=== PATIENT | female | born 1955 | race Caucasian/White ===

== ENCOUNTER 2019-08-09 18:51 | Inpatient (IN) | payer OTHER ==
[2019-08-09] MEDS ORDERED: SODIUM CHLORIDE 2,041 ML IV ONE (19:46)
[2019-08-09] MEDS ORDERED: ACETAMINOPHEN 1000 MG/100 ML VIAL (NON FORMULARY) IVPB ONE (19:48)
[2019-08-09] MEDS ORDERED: ONDANSETRON 4 MG/2 ML VIAL IVPUSH ONE (19:48)
[2019-08-09] MEDS ORDERED: ACETAMINOPHEN INJECTION 100 ML IVPB ONE (20:02)
[2019-08-09] MEDS ORDERED: ONDANSETRON 4 MG/2 ML VIAL ONE (20:02)
[2019-08-09 20:06] LABS: VENOUS PC02 33.7 mmHg (38-52); VENOUS PH 7.47 (7.31-7.41)
[2019-08-09 20:07] LABS: VENOUS PO2 < 49 mmHg (28-48)
--- NOTE | 2019-08-09 20:08 | PDOC ---
History of Present Illness - General Chief Complaint: Weakness Stated Complaint: SOB & VOMITING Time Seen by Provider: 08/09/19 19:21 History Source: Patient Exam Limitations: No Limitations - History of Present Illness Initial Comments: 08/09/19 19:51 Source: Patient and Spouse PCP: [place] Oncologist: [facility] HPI: 64yo F with PMH hemolytic anemia, PUD/GERD requiring 2x transfusion (2014) , sepsis from [facility] (2014), [place] (2014, never followed up), Stroke without residual deficit, bacterial meningitis (2007), cholecystectomy (2011, later reported CTAP ), presenting with 3 days of worsening abdominal pain with associated nausea vomiting, and today diarrhea. Patient was in [place] about 5 days ago when she developed intermittent, stabbing, LLQ pain, moving to the RLQ and including her lower back - an acute worsening of chronic pains. Over the same period she developed nausea and vomiting with 6-7 episodes of NBNB emesis daily. Reports lack of appetite and inability to tolerate PO food or water for the past 4 days. Also fatigued over this period - "she is very tired all of the time" is baseline per spouse. Nonproductive cough at night time, no chest pain, shortness of breath, wheezing, diaphoresis, fevers or chills. Reports 1 episodes of diarrhea today, no blood, nothing dark - normally has regular bowel movements without constipation or diarrhea. Denies urinary symptoms. Denies recent travels, different foods, or sick contacts. All: PCN > swelling Meds: Prednisone 10mg, Pantoprazole 40mg, Folic Acid PMH: as above PSH: Cholecystectomy 2011 SHx: 1/2PPD lifetiem smoker, denies ETOH or illicits Past History - Travel Traveled outside of the country in the last 30 days: No Close contact w/someone who was outside of country & ill: No - Past Medical History Allergies/Adverse Reactions: Allergies Allergy/AdvReac Type Severity Reaction Status Date / Time Penicillins Allergy Verified 08/09/19 19:01 Home Medications: Ambulatory Orders Folic Acid 1 mg PO DAILY 08/09/19 Pantoprazole Sodium 40 mg PO DAILY 08/09/19 Prednisolone [Millipred] 10 mg PO DAILY 08/09/19 Anemia: Yes - Psycho Social/Smoking Cessation Hx Smoking History: Current every day smoker Have you smoked in the past 12 months: Yes Number of Cigarettes Smoked Daily: 7 Information on smoking cessation initiated: No 'Breaking Loose' booklet given: 02/06/14 Hx Alcohol Use: No Drug/Substance Use Hx: No Hx Substance Use Treatment: No Review of Systems - Review of Systems Able to Perform ROS?: Yes Is the patient limited Khmer proficient: Yes Constitutional: Yes: Malaise, Weakness. No: Chills, Diaphoresis, Fever, Night Sweats, Weight Stable HEENTM: No: Recent change in vision, Nose Congestion, Tinnitus, Throat Pain, Throat Swelling, Mouth Swelling Respiratory: Yes: Cough (not productive). No: Orthopnea, Shortness of Breath, Stridor, Wheezing, Productive cough Cardiac (ROS): No: Chest Pain, Edema, Irregular Heart Rate, Palpitations, Syncope, Chest Tightness ABD/GI: Yes: See HPI, Diarrhea, Nausea, Poor Appetite, Poor Fluid Intake, Vomiting. No: Abdominal Distended, Blood Streaked Bowels, Constipated, Difficulty Swallowing, Rectal Bleeding, Tarry Stools : No: Burning, Dysuria, Frequency, Incontinence, Pain Musculoskeletal: No: Back Pain, Gout, Joint Pain, Joint Swelling Integumentary: Yes: Change in Color (jaundiced ). No: Change in Hair/Nails, Pruritus, Rash Neurological: Yes: Weakness. No: Headache, Numbness, Tingling, Unsteady Gait Psychiatric: No: Stressors, Mood Swings, Change in Appetite Endocrine: No: Excessive Sweating, Change in Weight Hematologic/Lymphatic: Yes: See HPI, Other (hemolytic anemia) All Other Systems: Reviewed and Negative *Physical Exam - Vital Signs Last Vital Signs Temp Pulse Resp BP Pulse Ox 100.7 F H 114 H 24 H 93/64 100 08/09/19 19:50 08/09/19 19:00 08/09/19 19:00 08/09/19 19:00 08/09/19 19:00 - Physical Exam Comments: 08/09/19 20:36 Vitals reviewed, febile to 100.7 rectally, tachycardia to 100s/110s, normal SPO2 , soft BP possibly baseline WDWN woman, appears stated age, appears uncomfortable, laying in bed MMM, EOMI, NCAT, trachea midline, mild scleral icterus, soft palate and sublingual jaundice RRR, nl s1s2, no murmur appreciated Wheezes in upper bilateral lung hugo (Sat 100% on RA), normal WOB, no crackles , good air movement in mid/lower Mildly jaundiced skin, no rash Left sided CVA tenderness Soft, tender diffusely throughout entire abdomen, +guarding, mildly distractable , nondistended, no overlying rash / markings, not tympanic, nonperitoneal Alert and oriented, CN grossly intact, MAEE ED Treatment Course - LABORATORY CBC & Chemistry Diagram: 08/10/19 06:02 08/10/19 06:02 - RADIOLOGY Radiology Studies Ordered: Category Date Time Status CHEST X-RAY PORTABLE* [RAD] Stat Radiology 08/09/19 19:46 Ordered Medical Decision Making - Medical Decision Making 08/09/19 20:10 64yo F with PMH hemolytic anemia, sepsis from [facility] (2014), [place] (2014, never followed up), Stroke without residual deficit, bacterial menengitis (2007), cholecystectomy (2011, later reported CTAP), presenting with 3 days of worsening abdominal pain with associated nausea vomiting, and today diarrhea. History notable for N/V/D, severe diffuse abdominal pain, anorexia. Physical notable for diffuse tenderness to light palpation, guarding, fever with tachycardia meeting sepsis criteria. DDX: Sepsis, appendicitis, PUD vs perforated viscous, splenic infarct, pancreatitis, gastroenteritis with dehydration, pyelonephritis. -Sepsis order set with 2L fluids, lipase -1g IV Tylenol -4mg Zofran -CTAP with IV Contrast 08/09/19 20:53 -Pt with Cr 1.5 prior baseline Cr before renal failure in 2014 - possibly EMILY in setting of dehydration vs CKD, IVF running, still plan for CTAP with IV contrast 08/09/19 22:05 -Leukocytosis, anemia / abnormal cell morphologies c/w hemolytic anemia -Normal electrolytes, Coags mildly elevated -Urine studies pending -CTAP complete, pending read 08/09/19 23:32 -CTAP with severe narrowing of the origin of janet superior mesenteric artery suspicious for chronic superior mesenteric artery distribution mild mesenteric ischemia. Mild nonspecific wall thickening of the cecum most likely due to mild infectious or inflammatory colitis or mild chronic ischemic colitis. mild left nonspecific mesenteric edema may be due to mild infection or inflammation. -Lactate negative (1.5) -Call placed to surgery -UTI, +CVA tenderness, DX Pyelonephritis -Levaquin 750, Morphine 2 -Repeat lactate being drawn 08/09/19 00:06 -Call placed to surgery, Dr. Hinson -Patient without lactate, non-peritoneal, likely admission to med/surg floor 08/10/19 00:12 -Surgery deferred to vascular surgery -Patient with continued pain, intermittently sharp / churning pain -2mg additional morphine 08/10/19 00:37 -Patient requesting social work for assistance establishing healthcare for the uninsured/underinsured Admitted to Med/Surg under Dr. Riley, will call vascular surgery 08/10/19 00:40 -Call place to Vascular surgery 08/10/19 00:47 -Dr. Gallego on board and will see the patient Discharge - Discharge Information Problems reviewed: Yes Clinical Impression/Diagnosis: EMILY (acute kidney injury), Pyelonephritis of left kidney, Chronic mesenteric ischemia Abdominal pain Qualifiers: Abdominal location: generalized Qualified Code(s): R10.84 - Generalized abdominal pain Condition: Guarded - Admission Yes - Follow up/Referral - Patient Discharge Instructions - Post Discharge Activity
[2019-08-09 20:24] LABS: INR 1.25 (0.83-1.09); PROTHROMBIN TIME (PATIENT) 14.8 SEC (9.7-13.0)
[2019-08-09 20:26] LABS: ACTIVATED PTT 29.6 SECONDS (25.2-36.5)
[2019-08-09 20:34] LABS: ALBUMIN 3.2 g/dl (3.4-5.0); BILIRUBIN,TOTAL 2.3 mg/dL (0.2-1); BLOOD UREA NITROGEN 16.8 mg/dL (7-18); CALCIUM 8.9 mg/dL (8.5-10.1); CREATININE 1.5 mg/dL (0.55-1.3); POTASSIUM 4.7 mmol/L (3.5-5.1); TOT PROT 6.5 g/dl (6.4-8.2)
[2019-08-09 21:01] LABS: HEMATOCRIT 20.8 % (32.4-45.2); HEMOGLOBIN 7.5 GM/dL (10.7-15.3); MCH 37.9 pg (25.7-33.7); MEAN CELL VOLUME 105.3 fl (80-96); RBC 1.97 M/mm3 (3.60-5.2); WHITE BLOOD COUNT 14.7 K/mm3 (4.0-10.0)
--- NOTE | 2019-08-09 21:30 | PDOC ---
Documentation entered by Bhargavi Gil SCRIBE, acting as scribe for Shayy Regan MD. Shayy Regan MD: This documentation has been prepared by the Louise arriola Nirvannie, SCRIBE, under my direction and personally reviewed by me in its entirety. I confirm that the documentation accurately reflects all work, treatment, procedures, and medical decision making performed by me. Attending Attestation - Resident Resident Name: JonahShade - ED Attending Attestation I have performed the following: I have examined & evaluated the patient, The case was reviewed & discussed with the resident, I agree w/resident's findings & plan - HPI HPI: 08/09/19 20:58 Ms. Jenkins is a 64 yo F with PMH hemolytic anemia, sepsis from P[place] (2014), [place] (2014), CVA without residual deficit, bacterial menengitis (2007), cholecystectomy (2011, later reported CTAP), presenting with 3 days of worsening abdominal pain with associated nausea vomiting, and today diarrhea. Approximately 5 days ago, she developed intermittent, stabbing, LLQ pain, moving to the RLQ and exending to her lower back She has nausea and is vomiting 6-7 times daily Pt has no appetite and is unable to tolerate PO. (+) Nonproductive cough no chest pain, shortness of breath, wheezing, diaphoresis, fevers or chills. (+) diarrhea non bloody, not melanotic Denies recent travels, different foods, or sick contacts. All: PCN > swelling Meds: Prednisone 10mg, Pantoprazole 40mg, Folic Acid PMH: as above PSH: Cholecystectomy 2011 SHx: 1/2PPD lifetiem smoker, denies ETOH or illicits - Physicial Exam PE: 08/09/19 21:28 GENERAL: The patient is in no acute distress. ENT: Ears normal, nares patent, oropharynx clear without exudates. Moist mucous membranes. No tonsillar enlargement, no exudates NECK: Normal range of motion, supple, no nuchal rigidity (+) LAD LUNGS: Breath sounds equal, clear to auscultation bilaterally. No wheezes, and no crackles. HEART:Regular rate and rhythm, normal S1 and S2 without murmur, rub or gallop. ABDOMEN: Soft, epigastric mid abdominal tenderness EXTREMITIES: Normal range of motion, no edema. NEUROLOGICAL: Cranial nerves II through XII grossly intact. Normal speech. No focal neurological deficits. SKIN: Warm, Dry, normal turgor, no rashes or lesions noted. 08/09/19 22:17 - Medical Decision Making 08/09/19 21:28 Ms. Jenkins presents to the emergency department with a complaint of abdominal pain, fevers, chills Patient status post cholecystectomy in the past Differential diagnosis includes but is not limited to: Diverticulitis (complicated versus uncomplicate), appendicitis, SBO with secondary infection, UTI with obstructing stone, pyelonephritis, viral infection EKG: Twelve-lead EKG was performed and reviewed by me. There is normal sinus rhythm with a normal rate. The axis is normal. The intervals are normal. There are no ST or T wave abnormalities. Impression: Normal twelve-lead EKG 08/09/19 22:14 Laboratory Tests 08/09/19 08/09/19 08/09/19 20:00 20:00 20:00 WBC 14.7 H Hgb 7.5 L Hct 20.8 L D INR PTT (Actin FS) Sodium 138 Potassium 4.7 Chloride 106 Carbon Dioxide 26 BUN 16.8 Creatinine 1.5 H Total Bilirubin 2.3 H Troponin I < 0.02 Lipase 140 08/09/19 20:00 WBC Hgb Hct INR 1.25 H PTT (Actin FS) 29.6 Sodium Potassium Chloride Carbon Dioxide BUN Creatinine Total Bilirubin Troponin I Lipase 08/09/19 23:32 Laboratory Tests 08/09/19 22:25 Urine Blood 1+ H Urine Nitrite Positive H Ur Leukocyte Esterase 2+ H Urine WBC (Auto) 254.9 Urine RBC (Auto) 5.9 Urine Bacteria (Auto) 1525.3 CT: FINDINGS: Lung bases are clear. Mild hepatomegaly. Mild nonspecific splenomegaly. Hypodense nonspecific splenic lesions may be due to infection or lymphoma. Nonspecific 1.2 cm hypodense lesion in the spleen on axial image 22. Nonspecific 1.3 cm hypodense lesion in the spleen on axial image 45. Status post cholecystectomy the common bile duct is mildly dilated. Adrenal glands and kidneys appear unremarkable. Moderate to severe arteriosclerosis of the aorta and aortic branches. Mild narrowing of the celiac trunk from the crura of the diaphragm on sagittal image 57. Severe narrowing of the origin of the superior mesenteric artery suspicious for chronic superior mesenteric artery distribution mild mesenteric ischemia. Arteriosclerotic narrowing of the origin of the inferior mesenteric artery is not well seen. Moderate arteriosclerosis of the pelvic arterial vasculature. Stomach appears unremarkable. Small bowel and appendix appear unremarkable. No appendicitis. Mild nonspecific circumferential wall thickening of the cecum may be due to mild infectious or inflammatory colitis or mild chronic ischemic colitis. Mild left abdominal nonspecific mesenteric edema may be due to mild infection or inflammation. Diverticulosis of the colon without diverticulitis. Heterogeneous enlarged fundal uterine myometrium may be due to multiple uterine fibroids and other uterine masses including malignancy cannot be excluded. Bladder appears unremarkable. No free air. No abscess. Small umbilical hernia of omental fat without incarceration. Mild to moderate degenerative disc disease. IMPRESSION: Severe narrowing of the origin of the superior mesenteric artery suspicious for chronic superior mesenteric artery distribution mild mesenteric ischemia. If clinically indicated further evaluation may be needed. Arteriosclerotic narrowing of the inferior mesenteric artery is not well seen. Mild nonspecific wall thickening of the cecum most likely due to mild infectious or inflammatory colitis or mild chronic ischemic colitis. Mild left abdominal nonspecific mesenteric edema may be due to mild infection or inflammation. Heterogeneous enlarged fundal uterine myometrium may be due to multiple uterine fibroids and other uterine masses including malignancy cannot be excluded. If clinically indicated follow-up outpatient [facility] consultation may be needed. Hypodense nonspecific splenic lesions may be due to infection or lymphoma. If clinically indicated follow-up outpatient evaluation may be needed. This CT exam was performed using one or more of the following dose reduction techniques: automated exposure control, adjustment of the mA and/or kV according to patient size, use of iterative reconstruction technique. One or more of the following dose reduction techniques were used: automated exposure control, adjustment of the mA and/or kV according to patient size, use of iterative reconstructive technique. THIS DOCUMENT HAS BEEN ELECTRONICALLY SIGNED Adonis Sher MD 08/09/2019 23:08 JACOB M.D. Please call Imaging Candy Puller [phone] ([phone]) with questions. Adonis Sher MD Pt ordered for Levaquin IV for colitis AND UTI Call placed to general surgery who state they are no the right consult for mesenteric ischemia Call placed to Dr Gallego, vascular Clinical impression: UTI, initial presentation (?pyelo) Colitis, initial presentation Chronic mesenteric ischemia, initial presentation Uterine masses, initial presentation Splenic lesions, initial prsentation
[2019-08-09 21:36] LABS: ANISOCYTOSIS 1+; MACROCYTOSIS 2+
[2019-08-09 21:37] LABS: PLATELET ESTIMATE ADEQUATE
[2019-08-09 22:37] LABS: PH,URINE 6.5 (5.0-8.0); URINE APPEARANCE CLOUDY; URINE BILIRUBIN NEGATIVE (NEGATIVE); URINE COLOR YELLOW; URINE GLUCOSE (UA) NEGATIVE (NEGATIVE); URINE KETONE NEGATIVE (NEGATIVE); URINE LEUK ESTERASE 2+ (NEGATIVE); URINE NITRITE POSITIVE (NEGATIVE); URINE PROTEIN 1+ (NEGATIVE)
[2019-08-09 22:55] LABS: EPI CELLS 1.2 /HPF (0-5/HPF); HYALINE CASTS 0 /lpf (0-8); URINE BACTERIA 1525.3 /hpf (NEGATIVE); URINE RBC 5.9 /hpf (0-4); URINE WBC 254.9 /hpf (0-5)
[2019-08-09] MEDS ORDERED: morphine CARPU-JECT 4 MG/1 ML DISP.SYRIN IVPUSH ONE (23:32)
[2019-08-09] MEDS ORDERED: MORPHINE SULFATE 2 MG/ML VIAL ONE (23:34)
[2019-08-10] MEDS ORDERED: morphine CARPU-JECT 4 MG/1 ML DISP.SYRIN IVPUSH ONE (00:30)
[2019-08-10] MEDS ORDERED: MORPHINE SULFATE 2 MG/ML VIAL ONE (00:39)
[2019-08-10] MEDS ORDERED: ACETAMINOPHEN 325 MG TABLET (FP) PO PRN (01:44)
[2019-08-10] MEDS ORDERED: SODIUM CHLORIDE 1,000 ML IV SCH (01:45)
[2019-08-10 02:10] LABS: BILIRUBIN,DIRECT 0.6 mg/dL (0.0-0.2)
--- NOTE | 2019-08-10 02:23 | HP ---
CHIEF COMPLAINT:LLQ abdominal pain PCP: none HISTORY OF PRESENT ILLNESS: 64 y/o F with PMH of cold agglutinin hemolytic anemia, PUD/GERD, CT (2014), TIA , bacterial meningitis(2007), cholecystectomy (2011) presenting with 3 days of worsening abdominal pain rating 8/10 in severity with associated 6-7 episodes NBNB nausea/vomiting and non bloody diarrhea. 5 day ago patient noticed that her pain in getting worse; it became more frequent, stabbing like in the LLQ then migrating to the RLQ although she felt pain in her whole abdomen. Per Pt and , Pt has been anorexic for the past 4 days with poor oral intake including water due to her symptoms.However, pt denies that food aggrevated her abdominal pain. Lying on the side made the pain better but nothing else seems to make it better or worse. pt denies any fevers/chills,headaches, dizziness, chest pain, SOB, or change in her urine color or BMs. pt endorsed non productive cough. Pt admits to not following up with any of her outpatient physicians Recent Travel: none PAST MEDICAL HISTORY: as outlined above PAST SURGICAL HISTORY: Cholecystectomy Social History: Smoking: active smoker. 1/2 PPD for 15-20 yrs Alcohol:denies Drugs: denies Allergies Penicillins Allergy (Verified 08/09/19 19:01) HOME MEDICATIONS: Home Medications Medication Instructions Recorded Folic Acid 1 mg PO DAILY 08/09/19 Pantoprazole Sodium 40 mg PO DAILY 08/09/19 Prednisolone [Millipred] 10 mg PO DAILY 08/09/19 REVIEW OF SYSTEMS CONSTITUTIONAL: loss of appetite Absent: fever, chills, diaphoresis, generalized weakness, malaise, weight change HEENT: Absent: rhinorrhea, nasal congestion, throat pain, throat swelling, difficulty swallowing, mouth swelling, ear pain, eye pain, visual changes CARDIOVASCULAR: Absent: chest pain, syncope, palpitations, irregular heart rate, lightheadedness , peripheral edema RESPIRATORY: cough non productive Absent: shortness of breath, dyspnea with exertion, orthopnea, wheezing, stridor , hemoptysis GASTROINTESTINAL:abdominal pain,nausea, vomiting, diarrhea Absent: abdominal distension, constipation, melena, hematochezia GENITOURINARY: Absent: dysuria, frequency, urgency, hesitancy, hematuria, flank pain, genital pain MUSCULOSKELETAL: Absent: myalgia, arthralgia, joint swelling, back pain, neck pain SKIN: Absent: rash, itching, pallor HEMATOLOGIC/IMMUNOLOGIC: Absent: easy bleeding, easy bruising, lymphadenopathy, frequent infections ENDOCRINE: Absent: unexplained weight gain, unexplained weight loss, heat intolerance, cold intolerance NEUROLOGIC: Absent: headache, focal weakness or paresthesias, dizziness, unsteady gait, seizure, mental status changes, bladder or bowel incontinence PSYCHIATRIC: Absent: anxiety, depression, suicidal or homicidal ideation, hallucinations. PHYSICAL EXAMINATION Vital Signs - 24 hr 08/09/19 08/09/19 08/09/19 19:00 19:50 20:30 Temperature 99.9 F H 100.7 F H Pulse Rate 114 H Pulse Rate [ 89 Apical] Respiratory 24 H 20 Rate Blood Pressure 93/64 Blood Pressure 108/46 L [Right Arm] O2 Sat by Pulse 100 97 Oximetry (%) 08/10/19 01:05 Temperature 98.9 F Pulse Rate Pulse Rate [ 84 Apical] Respiratory 18 Rate Blood Pressure Blood Pressure 115/45 L [Right Arm] O2 Sat by Pulse 95 Oximetry (%) GENERAL: Awake, alert, and fully oriented, in mild distress. HEAD: Normal with no signs of trauma. EYES: Pupils equal, round and reactive to light, extraocular movements intact, sclera icteric. No lid lag. EARS, NOSE, THROAT: oropharynx clear without exudates. Moist mucous membranes. NECK: Normal range of motion, supple without lymphadenopathy, JVD, or masses. LUNGS: Breath sounds equal, clear to auscultation bilaterally. No wheezes, and no crackles. No accessory muscle use. HEART: Regular rate and rhythm, normal S1 and S2 without murmur, rub or gallop. ABDOMEN: Soft, tender to deep palpation diffusely but more pronounced in LQs, obese, normoactive bowel sounds, no guarding, no rebound, no masses. No hepatomegaly or splenomegaly. MUSCULOSKELETAL: Normal range of motion at all joints. No bony deformities or tenderness. L CVA tenderness. UPPER EXTREMITIES: 2+ pulses, warm, well-perfused. No cyanosis. No clubbing. No peripheral edema. LOWER EXTREMITIES: 2+ pulses, warm, well-perfused. No calf tenderness. No peripheral edema. SKIN: Warm, dry, normal turgor, no rashes or lesions noted, normal capillary refill. rectal exam: deferred Laboratory Results - last 24 hr 08/09/19 08/09/19 08/09/19 20:00 20:00 20:00 WBC 14.7 H RBC 1.97 L Hgb 7.5 L Hct 20.8 L D MCV 105.3 H MCH 37.9 H D MCHC 36.0 RDW 18.0 H Plt Count MPV No Result Required. Absolute Neuts (auto) 11.5 H Neutrophils % 78.2 Lymphocytes % 17.2 Monocytes % 4.1 Eosinophils % 0.2 Basophils % 0.3 Nucleated RBC % 0 Hypochromia 2+ Platelet Estimate Adequate Platelet Comment Mod plt clumping Anisocytosis 1+ Macrocytosis 2+ PT with INR INR PTT (Actin FS) VBG pH POC VBG pCO2 POC VBG pO2 VBG HCO3 VBG O2 Sat (Baljinder) VBG Base Excess Sodium 138 Potassium 4.7 Chloride 106 Carbon Dioxide 26 Anion Gap 7 L BUN 16.8 Creatinine 1.5 H Est GFR (CKD-EPI)AfAm 42.83 Est GFR (CKD-EPI)NonAf 36.95 Random Glucose 102 Lactic Acid Calcium 8.9 Total Bilirubin 2.3 H Direct Bilirubin 0.6 H AST 24 ALT 36 Alkaline Phosphatase 220 H Troponin I < 0.02 Total Protein 6.5 Albumin 3.2 L Lipase 140 Urine Color Urine Appearance Urine pH Ur Specific Mcallister Urine Protein Urine Glucose (UA) Urine Ketones Urine Blood Urine Nitrite Urine Bilirubin Urine Urobilinogen Ur Leukocyte Esterase Urine WBC (Auto) Urine RBC (Auto) Urine Casts (Auto) U Epithel Cells (Auto) Urine Bacteria (Auto) 08/09/19 08/09/19 08/09/19 20:00 20:00 20:00 WBC RBC Hgb Hct MCV MCH MCHC RDW Plt Count MPV Absolute Neuts (auto) Neutrophils % Lymphocytes % Monocytes % Eosinophils % Basophils % Nucleated RBC % Hypochromia Platelet Estimate Platelet Comment Anisocytosis Macrocytosis PT with INR 14.80 H INR 1.25 H PTT (Actin FS) 29.6 VBG pH 7.47 H POC VBG pCO2 33.7 L POC VBG pO2 < 49 H VBG HCO3 24.5 VBG O2 Sat (Baljinder) 75.3 VBG Base Excess 1.4 Sodium Potassium Chloride Carbon Dioxide Anion Gap BUN Creatinine Est GFR (CKD-EPI)AfAm Est GFR (CKD-EPI)NonAf Random Glucose Lactic Acid 1.5 Calcium Total Bilirubin Direct Bilirubin AST ALT Alkaline Phosphatase Troponin I Total Protein Albumin Lipase Urine Color Urine Appearance Urine pH Ur Specific Mcallister Urine Protein Urine Glucose (UA) Urine Ketones Urine Blood Urine Nitrite Urine Bilirubin Urine Urobilinogen Ur Leukocyte Esterase Urine WBC (Auto) Urine RBC (Auto) Urine Casts (Auto) U Epithel Cells (Auto) Urine Bacteria (Auto) 08/09/19 08/09/19 22:25 23:40 WBC RBC Hgb Hct MCV MCH MCHC RDW Plt Count MPV Absolute Neuts (auto) Neutrophils % Lymphocytes % Monocytes % Eosinophils % Basophils % Nucleated RBC % Hypochromia Platelet Estimate Platelet Comment Anisocytosis Macrocytosis PT with INR INR PTT (Actin FS) VBG pH POC VBG pCO2 POC VBG pO2 VBG HCO3 VBG O2 Sat (Baljinder) VBG Base Excess Sodium Potassium Chloride Carbon Dioxide Anion Gap BUN Creatinine Est GFR (CKD-EPI)AfAm Est GFR (CKD-EPI)NonAf Random Glucose Lactic Acid 0.6 Calcium Total Bilirubin Direct Bilirubin AST ALT Alkaline Phosphatase Troponin I Total Protein Albumin Lipase Urine Color Yellow Urine Appearance Cloudy Urine pH 6.5 D Ur Specific Mcallister 1.026 Urine Protein 1+ H Urine Glucose (UA) Negative Urine Ketones Negative Urine Blood 1+ H Urine Nitrite Positive H Urine Bilirubin Negative Urine Urobilinogen 1.0 Ur Leukocyte Esterase 2+ H Urine WBC (Auto) 254.9 Urine RBC (Auto) 5.9 Urine Casts (Auto) 0 U Epithel Cells (Auto) 1.2 Urine Bacteria (Auto) 1525.3 ASSESSMENT/PLAN: 64 y/o F with PMH of cold agglutinin hemolytic anemia, PUD/GERD, CT (2014), TIA , bacterial meningitis(2007), cholecystectomy (2011) presenting with 3 days of worsening abdominal pain rating 8/10 in severity with associated 6-7 episodes NBNB nausea/vomiting and non bloody diarrhea. Abdominal pain 2/2 ischemic due to hemolysis vs infectious colitis CTAP with severe narrowing of the origin of the superior mesenteric artery suspicious for chronic superior mesenteric artery distribution mild mesenteric ischemia. Mild nonspecific wall thickening of the cecum most likely due to mild infectious or inflammatory colitis or mild chronic ischemic colitis. mild left nonspecific mesenteric edema may be due to mild infection or inflammation. Vascular surgery Dr Gallego consulted NPO in case for need of surgical intervention aggresive Hydration with NS @100 right now started rocephyn and flagyl morphine for pain control. per Dr Riley, these pt can be in severe pain do not refrain from giving more pain meds if needed blood cultures sent Zofran UTI with Pos UA and CVA tenderness UA pos for nitrites, 1+blood and protein,wbc 254.9 f/u urine culture Hemolytic crisis 2/2 cold agglutinin hemolytic anemia exacerbation from infection? Hb 7.5/20.8 Dr Brown type and screen 1 PRBC transfused as pt had CAD . repeat cbc s/p transfusion indirect bili 1.7. LDH, Hapto, reticulocyte count, RDI ordered for active lysis cont folate supplementation dion test for antibody obtain o/p heme/onc records flu swab RUQ U/S for elevated ALP EMILY on chronic? pt doesnt know baseline monitor IVF BMP DVT SCDs no chemical AC Visit type - Emergency Visit Emergency Visit: Yes ED Registration Date: 08/10/19 Care time: The patient presented to the Emergency Department on the above date and was hospitalized for further evaluation of their emergent condition. - New Patient This patient is new to me today: Yes Date on this admission: 08/10/19 - Critical Care Critical Care patient: No ATTENDING PHYSICIAN STATEMENT I saw and evaluated the patient. I reviewed the resident's note and discussed the case with the resident. I agree with the resident's findings and plan as documented. SUBJECTIVE: OBJECTIVE: ASSESSMENT AND PLAN:
--- NOTE | 2019-08-10 02:38 | PN ---
Teaching Attending Note Name of Resident: Mary Sims ATTENDING PHYSICIAN STATEMENT I saw and evaluated the patient. I reviewed the resident's note and discussed the case with the resident. I agree with the resident's findings and plan as documented. SUBJECTIVE: 64 y/o F with PMH of cold agglutinin hemolytic anemia, PUD/GERD, [place] (2014), TIA , bacterial meningitis(2007), cholecystectomy (2011) presenting with 3 days of worsening abdominal pain, Which is present diffusely in her abdomen and it radiates to her flanks bilaterally, however denies overt back pain. She has associated nausea and vomiting with multiple episodes over the last 3 days. Reports one episode of loose stools nonbloody. Patient reports that her symptoms are characteristic of a typical hemolysis crisis. She denied any dysuria shortness of breath But did complain of a dry cough. OBJECTIVE: Last Vital Signs Temp Pulse Resp BP Pulse Ox 98.9 F 84 18 115/45 L 95 08/10/19 01:05 08/10/19 01:05 08/10/19 01:05 08/10/19 01:05 08/10/19 01:05 GENERAL: Well developed, well nourished. Awake and alert. Appears uncomfortable HEENT: Normocephalic, atraumatic. PERRLA, EOMI. +conjunctival pallor. Sclera are icteric. Moist mucous membranes. Oropharynx is clear. NECK: Supple. Full ROM. No JVD. Carotid pulses 2+ and symmetric, without bruits. No thyromegaly. No lymphadenopathy. CARDIOVASCULAR: Regular rate and rhythm. No murmurs, rubs, or gallops. Distal pulses are 2+ and symmetric. PULMONARY: No evidence of respiratory distress. Lungs clear to auscultation bilaterally. No wheezing, rales or rhonchi. ABDOMINAL: Soft. Tenderness in all quadrants, no rebound tenderness MUSCULOSKELETAL Normal range of motion at all joints. No bony deformities or tenderness. No CVA tenderness. EXTREMITIES: No cyanosis. No clubbing. No edema. No calf tenderness. SKIN: Warm and dry. Normal capillary refill. No rashes. No jaundice. PSYCHIATRIC: Cooperative. Good eye contact. Appropriate mood and affect. Abnormal Lab Results 08/09/19 08/09/19 08/09/19 20:00 20:00 20:00 WBC 14.7 H RBC 1.97 L Hgb 7.5 L Hct 20.8 L D MCV 105.3 H MCH 37.9 H D RDW 18.0 H Absolute Neuts (auto) 11.5 H PT with INR 14.80 H INR 1.25 H VBG pH POC VBG pCO2 POC VBG pO2 Anion Gap 7 L Creatinine 1.5 H Total Bilirubin 2.3 H Direct Bilirubin 0.6 H Alkaline Phosphatase 220 H Albumin 3.2 L Urine Protein Urine Blood Urine Nitrite Ur Leukocyte Esterase 08/09/19 08/09/19 20:00 22:25 WBC RBC Hgb Hct MCV MCH RDW Absolute Neuts (auto) PT with INR INR VBG pH 7.47 H POC VBG pCO2 33.7 L POC VBG pO2 < 49 H Anion Gap Creatinine Total Bilirubin Direct Bilirubin Alkaline Phosphatase Albumin Urine Protein 1+ H Urine Blood 1+ H Urine Nitrite Positive H Ur Leukocyte Esterase 2+ H Imaging reviewed ASSESSMENT AND PLAN: 64-year-old woman presenting with what appears to be a hemolytic anemia crisis. She appears to have a acute exacerbation which may be precipitated by the new onset of cold weather. Furthermore the her attack may have been precipitated by an infection which may be possible colitis versus cystitis versus cholangitis. leukocytosis+. She is noted to have elevated alk phos and hyperbilirubinemia which are likely from acute hemolytic crisis however cannot rule out acute hepatobiliary process such as cholangitis. Hemolytic crisis may have been precipitated further by vomiting and loose stool which would have led to dehydration. She is also noted to have mesenteric vessel stenosis on her abdominal CT however I do not have strong suspicion of mesenteric ischemia at this time as she does not have postprandial pain and her lactate was normal. Noted to have severe macrocytic anemia likely from the hemolysis. Platelet value was initially not available as they were clumped. We will try to resend in citrate tube. EMILY likely prerenal in nature. 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
[2019-08-10] MEDS: SODIUM CHLORIDE 1,000 ML IV SCH (03:38)
[2019-08-10 04:29] VITALS: BMI 27.0
[2019-08-10] MEDS: morphine SULFATE 4 MG/ML VIAL IVPUSH PRN ×4 (06:29→21:03)
[2019-08-10 07:34] LABS: ALBUMIN 2.7 g/dl (3.4-5.0); BILIRUBIN,TOTAL 1.5 mg/dL (0.2-1); BLOOD UREA NITROGEN 13.4 mg/dL (7-18); CALCIUM 8.2 mg/dL (8.5-10.1); CREATININE 1.3 mg/dL (0.55-1.3); MAGNESIUM 2.1 mg/dL (1.8-2.4); PHOSPHOROUS 3.2 mg/dL (2.5-4.9); POTASSIUM 4.4 mmol/L (3.5-5.1); TOT PROT 5.9 g/dl (6.4-8.2)
[2019-08-10 09:04] LABS: BASO % 0.6 % (0-2.0); EOS % 0.5 % (0-4.5); LYMPH % 17.1 % (8-40); MCH 35.5 pg (25.7-33.7); MCHC 34.9 g/dl (32.0-36.0); MEAN CELL VOLUME 101.9 fl (80-96); MEAN PLT VOLUME 9.3 fl (7.5-11.1); MONO % 4.3 % (3.8-10.2); NEUT % 77.5 % (42.8-82.8); RDW 18.6 % (11.6-15.6); WHITE BLOOD COUNT 12.5 K/mm3 (4.0-10.0)
--- NOTE | 2019-08-10 09:55 | PN ---
Progress Note, Physician Chief Complaint: still c/o abd pain, still hungry, passing gas, no bm today , last bm was yersterday, and also is nauseous, but no vomiting , - Current Medication List Current Medications: Active Medications Acetaminophen (Tylenol -) 650 mg PO Q4H PRN PRN Reason: PAIN LEVEL 1-5 Folic Acid (Folic Acid -) 1 mg PO DAILY TRAM Ceftriaxone Sodium 1 gm/ (Dextrose) 100 mls @ 200 mls/hr IVPB DAILY TRAM; Protocol Metronidazole (Flagyl 500mg Premixed Ivpb -) 500 mg in 100 mls @ 100 mls/hr IVPB Q8H-IV TRAM Last Admin: 08/10/19 03:37 Dose: 100 mls/hr Sodium Chloride (Normal Saline -) 1,000 mls @ 150 mls/hr IV ASDIR TRAM Last Admin: 08/10/19 03:38 Dose: 150 mls/hr Morphine Sulfate (Morphine Sulfate) 4 mg IVPUSH Q4H PRN PRN Reason: PAIN LEVEL 6-10 Last Admin: 08/10/19 06:29 Dose: 4 mg - Objective Vital Signs: Vital Signs Temperature 99.4 F 08/10/19 06:00 Pulse Rate 87 08/10/19 06:00 Respiratory Rate 18 08/10/19 06:00 Blood Pressure 120/54 L 08/10/19 06:00 O2 Sat by Pulse Oximetry (%) 100 08/10/19 04:00 Constitutional: Yes: Well Nourished Eyes: Yes: WNL HENT: Yes: WNL, Atraumatic Neck: Yes: WNL, Supple Cardiovascular: Yes: WNL, Regular Rate and Rhythm Respiratory: Yes: WNL, Regular, CTA Bilaterally Gastrointestinal: Yes: Soft, Tenderness (to deep palpation all aross the upper abdomen , no rebound, bs+.) Extremities: Yes: WNL Neurological: Yes: WNL Labs: CBC, BMP 08/10/19 06:02 08/10/19 06:02 INR, PTT INR 1.25 (0.83-1.09) H 08/09/19 20:00 - ....Imaging Cat Scan: Report Reviewed Ultrasound: Pending Problem List - Problems (1) EMILY (acute kidney injury) Code(s): N17.9 - ACUTE KIDNEY FAILURE, UNSPECIFIED (2) Abdominal pain Code(s): R10.9 - UNSPECIFIED ABDOMINAL PAIN Qualifiers: Abdominal location: generalized Qualified Code(s): R10.84 - Generalized abdominal pain (3) Chronic mesenteric ischemia Code(s): K55.1 - CHRONIC VASCULAR DISORDERS OF INTESTINE Impression/Plan Impression/Plan: ASSESSMENT/PLAN: 64 y/o F with PMH of cold agglutinin hemolytic anemia, PUD/GERD, [place] (2014), TIA , bacterial meningitis(2007), cholecystectomy (2011) presenting with 3 days of worsening abdominal pain rating 8/10 in severity with associated 6-7 episodes nausea/vomiting and non bloody diarrhea. Abdominal pain 2/2 ischemic due to hemolysis vs infectious colitis CT ABD with severe narrowing of the origin of the superior mesenteric artery suspicious for chronic superior mesenteric artery distribution mild mesenteric ischemia. Mild nonspecific wall thickening of the cecum most likely due to mild infectious or inflammatory colitis or mild chronic ischemic colitis. mild left nonspecific mesenteric edema may be due to mild infection or inflammation. Vascular surgery Dr Gallego consulted, and pending, case discussed on the phone and wants pt to eat, will fu later, and mesenteric ischemia is less likely reason for the pt to have the current symptoms, discussed with Gi, less likely from ischemia, no h/o of intestinal angina , will start clear liquids, and will continue ivf and abx for now, and also started on iv PPI as per GI, morphine for pain control. possible Hemolytic crisis 2/2 cold agglutinin hemolytic anemia exacerbation from infection? Hb 7.5/20.8 discussed with heme, no need for transfusion for now, monitor if needed will transfuse, discussed with , refusing transfusion, anc wants to be informed in case of transfusions, indirect bili dec check daily cbc and retic counts, EMILY on chronic IVF monitor labs, DVT SCDs no chemical AC - New Patient Visit type - Emergency Visit Emergency Visit: No - New Patient This patient is new to me today: Yes Date on this admission: 08/10/19 - Critical Care Critical Care patient: No - Discharge Referral Referred to [facility] No
[2019-08-10 10:04] LABS: RBC 1.96 M/mm3 (3.60-5.2)
[2019-08-10 10:29] LABS: PLATELET ESTIMATE NORMAL
--- NOTE | 2019-08-10 10:32 | EKG ---
Test Reason : Blood Pressure : / mmHG Vent. Rate : 088 BPM Atrial Rate : 088 BPM P-R Int : 138 ms QRS Dur : 088 ms QT Int : 348 ms P-R-T Axes : 072 054 054 degrees QTc Int : 421 ms NORMAL SINUS RHYTHM NORMAL ECG WHEN COMPARED WITH ECG OF 06-FEB-2014 22:03, NO SIGNIFICANT CHANGE WAS FOUND Confirmed by MD BE, ANSELMO ([id number]) on 08/10/2019 10:32:05 AM Referred By: Confirmed By:ANSELMO LR MD
[2019-08-10 10:38] LABS: PLATELET COUNT 330 K/MM3 (134-434)
[2019-08-10 10:57] LABS: RETICULOCYTES 4.71 % (0.5-1.5)
[2019-08-10] MEDS: FOLIC ACID 1 MG TABLET (FP) PO SCH (11:46)
--- NOTE | 2019-08-10 13:02 | CONSULT ---
Consult Consult Specialty:: Hematology Referred by:: Medicine Reason for Consultation:: Hemolysis - History of Present Illness Chief Complaint: Admitted with 3 days of worsening abdominal pain. with associated nausea vomiting, and then diarrhea. Also several days malaise and weakness. Ongoing hemolysis detected on admission, with history of cold agglutinin hemolysis. History of Present Illness: Known cold agglitinin syndrome, diagnosed in 2015, when presented with pneumonia. Managed by Dr Jesus Villarreal at [facility] in [place]. Received Rituxan in the past (?2016), and has generally been well since. Knows to avoid cold. Patient does not know if primary, or underlying lymphoproliferative neoplasm - has had abone marrow biopsy as part of her workup. Seen within last month by her manager summer, who informed her that he saw evidence of hemolysis - had increased her dose of prednisone. 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 No: Constipation, Diverticulosis, Esophageal Varices, Pancreatitis ...: No - Past Surgical History Past Surgical History: Yes: Tonsillectomy - Alcohol/Substance Use Hx Alcohol Use: No History of Substance Use: reports: None - Smoking History Smoking history: Current every day smoker Have you smoked in the past 12 months: Yes Aproximately how many cigarettes per day: 7 - Social History Usual Living Arrangement: With Spouse ADL: Independent History of Recent Travel: No Home Medications - Allergies Allergies/Adverse Reactions: Allergies Allergy/AdvReac Type Severity Reaction Status Date / Time Penicillins Allergy Verified 08/09/19 19:01 - Home Medications Home Medications: Ambulatory Orders Folic Acid 1 mg PO DAILY 08/09/19 Pantoprazole Sodium 40 mg PO DAILY 08/09/19 Prednisolone [Millipred] 10 mg PO DAILY 08/09/19 Review of Systems - Review of Systems Constitutional: reports: Malaise, Weakness. denies: Fever, Loss of Appetite, Night Sweats, Unintentional Wgt. Loss Eyes: reports: No Symptoms HENT: reports: No Symptoms Neck: denies: Lumps, Swollen Glands Cardiovascular: denies: Chest Pain, Shortness of Breath Respiratory: denies: Cough, SOB Gastrointestinal: reports: Abdominal Pain, Diarrhea, Nausea Genitourinary: reports: No Symptoms Breasts: reports: No Symptoms Reported Musculoskeletal: reports: No Symptoms Integumentary: reports: No Symptoms Neurological: denies: Change in LOC, Confusion, Parasthesia, Tremors Endocrine: reports: No Symptoms Hematology/Lymphatic: denies: Easily Bruised, Swollen Glands Psychiatric: reports: No Symptoms Physical Exam Vital Signs: Vital Signs Temperature 99.4 F 08/10/19 06:00 Pulse Rate 87 08/10/19 06:00 Respiratory Rate 18 08/10/19 06:00 Blood Pressure 120/54 L 08/10/19 06:00 O2 Sat by Pulse Oximetry (%) 100 08/10/19 04:00 Constitutional: Yes: Well Nourished, No Distress Eyes: Yes: Conjunctiva Clear, Sclera Icterus HENT: Yes: Atraumatic, Normocephalic Neck: Yes: Trachea Midline. No: Lymphadenopathy Cardiovascular: Yes: Regular Rate and Rhythm, S1, S2. No: Gallop, Murmur Respiratory: Yes: Regular, CTA Bilaterally Gastrointestinal: Yes: Normal Bowel Sounds, Soft. No: Palpable Mass, Splenomegaly Musculoskeletal: Yes: WNL Extremities: Yes: WNL Edema: No Integumentary: No: Bruising, Venous Stasis Changes Neurological: Yes: Alert, Oriented. No: Ataxia, Facial Droop ...Motor Strength: WNL Psychiatric: Yes: Alert, Oriented Labs: CBC, BMP 08/10/19 06:02 08/10/19 06:02 Assessment/Plan Known cold agglutinin syndrome, initially diagnosed 2014, presenting with GI symptoms, anemia, and evidence of ongoing hemolysis. Baseline Hb not known. Seems likely that the GI process is the primary event, and this possibly precipitated a hemolytic crisis. GI evaluation, possible vascular evaluation - narrowing of source of mesenteric artery seen on CT scan. From hematological standpoint current management consists of keeping patient warm, avoiding infusion pf cold fluids (IV fluid should be warmed to near body temperature, or avoided) Daily CBCs and reticuloctyte counts. Can transfuse if anemia significantly symptomatic (not indicated presently). If hemolysis continues unaabted with ongoing worsening of anemia, then more aggressive measures can be considered (IVIG, plasmapheresis). Will obtain information from primary manager summer (Dr. Villarreal, in [facility]) tomorrow - re baseline Hb and retic count etc. Peripheral smear reviewed - red cell agglutination noted).
--- NOTE | 2019-08-10 13:26 | CON.GI ---
Consult Consult Specialty:: Gastroenterology ( covering the [facility] GI service) Referred by:: Dr Trevor Garcia Reason for Consultation:: Nausea and vomiting - History of Present Illness Chief Complaint: nausea and vomiting History of Present Illness: 64F is admitted for nausea and vomiting for the past 3 days that has kept her form eating. She had a single episode of diarrhea yesterday but nothing since. Her CTA reveals a narrowed SMA takeoff a dilated CBD and cecal wall thickening. She did suffer a CVA and WA in the past. 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 She feels that her hemolysis is flaring further as such flares for her are associated with nausea and vomiting. She denies hematemesis and her diarrhea was nonbloody. She tells me that she had a UGI bleed form a gastric ulcer at [place] in 2014. At that time she also suffered an WA and was then discovered to have the hemolytic anemia. She has no regular medical followup as she in uninsured. She has been disabled since suffering bacterial meningitis and a CVA with transient right hemiparesis in 2007. She has never had a colonoscopy. She denies a FH of colon cancer and IBD. 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: CVA (2007 right hemiparesis with resolution), Other (Bacterial meningitis in 2007) Gastrointestinal: Yes: GI Bleed (gastric ulcer bleed 2014), Peptic Ulcer Disease Hepatobiliary: Yes: Cholelithiasis (s/p lap choly 2011), Choledocholithiasis (s/ p ERCP with Dr Munson 2011 with stone extraction) Reproductive: Yes: Fibroids ...: No Heme/Onc: Yes: Anemia (hemolytic) - Past Surgical History Past Surgical History: Yes: Cholecystectomy (laparoscopic in 2011 - Dr Hoff) , Tonsillectomy - Alcohol/Substance Use Hx Alcohol Use: No History of Substance Use: reports: None - Smoking History Smoking history: Current every day smoker Have you smoked in the past 12 months: Yes Aproximately how many cigarettes per day: 7 - Social History Usual Living Arrangement: With Spouse ADL: Independent 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 Loss, Weakness Eyes: reports: No Symptoms HENT: reports: No Symptoms Neck: reports: No Symptoms Cardiovascular: reports: No Symptoms Respiratory: reports: Exercise Intolerance Gastrointestinal: reports: Abdominal Pain, Nausea Musculoskeletal: reports: Muscle Pain Physical Exam-GI Vital Signs: Vital Signs Temperature 99.4 F 08/10/19 06:00 Pulse Rate 87 08/10/19 06:00 Respiratory Rate 18 08/10/19 06:00 Blood Pressure 120/54 L 08/10/19 06:00 O2 Sat by Pulse Oximetry (%) 100 08/10/19 04:00 CBC,CMP WBC 12.5 K/mm3 (4.0-10.0) H 08/10/19 06:02 RBC 1.96 M/mm3 (3.60-5.2) L 08/10/19 06:02 Hgb 7.0 GM/dL (10.7-15.3) L 08/10/19 06:02 Hct 20.0 % (32.4-45.2) L 08/10/19 06:02 MCV 101.9 fl (80-96) H 08/10/19 06:02 MCH 35.5 pg (25.7-33.7) H 08/10/19 06:02 MCHC 34.9 g/dl (32.0-36.0) 08/10/19 06:02 RDW 18.6 % (11.6-15.6) H 08/10/19 06:02 Plt Count 330 K/MM3 (134-434) D 08/10/19 06:02 MPV 9.3 fl (7.5-11.1) D 08/10/19 06:02 Absolute Neuts (auto) 9.7 K/mm3 (1.5-8.0) H 08/10/19 06:02 Neutrophils % 77.5 % (42.8-82.8) 08/10/19 06:02 Neutrophils % (Manual) No Result Required. 08/09/19 20:00 Lymphocytes % 17.1 % (8-40) 08/10/19 06:02 Monocytes % 4.3 % (3.8-10.2) 08/10/19 06:02 Eosinophils % 0.5 % (0-4.5) 08/10/19 06:02 Basophils % 0.6 % (0-2.0) 08/10/19 06:02 Nucleated RBC % 0 % (0-0) 08/10/19 06:02 Hypochromia 2+ 08/09/19 20:00 Platelet Estimate Normal 08/10/19 06:02 Platelet Comment No clotting detected 08/10/19 06:02 Anisocytosis 1+ 08/09/19 20:00 Macrocytosis 2+ 08/09/19 20:00 Retic Count 4.71 % (0.5-1.5) H 08/10/19 06:02 Sodium 143 mmol/L (136-145) 08/10/19 06:02 Potassium 4.4 mmol/L (3.5-5.1) 08/10/19 06:02 Chloride 110 mmol/L (98-107) H 08/10/19 06:02 Carbon Dioxide 24 mmol/L (21-32) 08/10/19 06:02 Anion Gap 9 MMOL/L (8-16) 08/10/19 06:02 BUN 13.4 mg/dL (7-18) 08/10/19 06:02 Creatinine 1.3 mg/dL (0.55-1.3) 08/10/19 06:02 Est GFR (CKD-EPI)AfAm 50.92 08/10/19 06:02 Est GFR (CKD-EPI)NonAf 43.93 08/10/19 06:02 Random Glucose 93 mg/dL (74-106) 08/10/19 06:02 Lactic Acid 0.6 mmol/L (0.4-2.0) 08/09/19 23:40 Calcium 8.2 mg/dL (8.5-10.1) L 08/10/19 06:02 Phosphorus 3.2 mg/dL (2.5-4.9) 08/10/19 06:02 Magnesium 2.1 mg/dL (1.8-2.4) 08/10/19 06:02 Total Bilirubin 1.5 mg/dL (0.2-1) H 08/10/19 06:02 Direct Bilirubin 0.6 mg/dL (0.0-0.2) H 08/09/19 20:00 AST 20 U/L (15-37) 08/10/19 06:02 ALT 33 U/L (13-61) 08/10/19 06:02 Alkaline Phosphatase 199 U/L (45-117) H 08/10/19 06:02 LD Total 221 U/L (84-246) 08/10/19 02:45 Troponin I < 0.02 ng/ml (0.00-0.05) 08/09/19 20:00 Total Protein 5.9 g/dl (6.4-8.2) L 08/10/19 06:02 Albumin 2.7 g/dl (3.4-5.0) L 08/10/19 06:02 Lipase 140 U/L (73-393) 08/09/19 20:00 Vitamin B12 531 pg/ml (193-986) 08/10/19 06:02 Serum Folate 53 ng/mL (3.1-17.5) H 08/10/19 06:02 TSH 2.45 uIU/ml (0.358-3.74) 08/10/19 06:02 Current Medications Generic Name Dose Route Start Last Admin Trade Name Freq PRN Reason Stop Dose Admin Acetaminophen 650 mg 08/10/19 01:44 Tylenol - PO Q4H PRN PAIN LEVEL 1-5 Folic Acid 1 mg 08/10/19 10:00 08/10/19 11:46 Folic Acid - PO Not Given DAILY TRAM Ceftriaxone Sodium 1 gm/ 100 mls @ 200 mls/hr 08/10/19 10:00 Dextrose IVPB DAILY TRAM Protocol Metronidazole 500 mg in 100 mls @ 100 mls/hr 08/10/19 02:00 08/10/19 11:42 Flagyl 500mg Premixed Ivpb - IVPB 100 mls/hr Q8H-IV TRAM Administration Sodium Chloride 1,000 mls @ 150 mls/hr 08/10/19 02:17 08/10/19 03:38 Normal Saline - IV 150 mls/hr ASDIR TRAM Administration Morphine Sulfate 4 mg 08/10/19 02:16 08/10/19 11:45 Morphine Sulfate IVPUSH 4 mg Q4H PRN Administration PAIN LEVEL 6-10 Constitutional: Yes: Anxious Eyes: Yes: Conjunctiva Clear HENT: Yes: Normocephalic Neck: Yes: Trachea Midline Cardiovascular: Yes: Regular Rate and Rhythm Respiratory: Yes: CTA Bilaterally Gastrointestinal Inspection: Yes: Distention, Scars (healed lap choly incisions) ...Auscultate: Yes: Normoactive Bowel Sounds ...Palpate: Yes: Soft, Other (RLQ tenderness) ...Rectal Exam: Yes: Guaiac Negative (soft brown guaiac negative stool) Edema: No Neurological: Yes: Alert, Oriented Labs: CBC, BMP 08/10/19 06:02 08/10/19 06:02 INR, PTT INR 1.25 (0.83-1.09) H 08/09/19 20:00 Imaging - Results Cat Scan: Report Reviewed ( Final Report CT ABDOMEN & PELVIS CT WITH CONTR Show Printer-Friendly Version Patient Name: Naomi Swain : Mar-1955 ID: [id number] Study Date: 09-Aug-2019 21:23 Velvet Costa Name: NAOMI SWAIN DEPARTMENT OF RADIOLOGY Phys: Shade Mckenzie RESIDENT : 1955 Age: 64 Sex: F [facility] Acct: [id number] Loc: [address] Exam Date: 08/09/19 Status: [place] [address] Unit Number: [id number] EXAM#: TYPE/EXAM: RESULT: [id number] CT/ABDOMEN PELVIS CT WITH CONTR History : abdominal pain CT Scan of the abdomen and pelvis without oral but with IV contrast; 96 cc Visipaque [id number] FINDINGS: Small hiatal hernia At least 2 1.0 cm low-attenuation lesions of the spleen identified. The liver,, adrenal glands and pancreas are unremarkable. Status post cholecystectomy There is no hydronephrosis, or renal calculi. No definitive solid renal masses There is no retroperitoneal lymphadenopathy. There is no abdominal aortic aneurysm. Significant calcification of the abdominal aorta with possible narrowing of the origin of the SMA Questionable mild inflammatory stranding in the left upper quadrant of the abdomen adjacent to the left kidney and small bowel. Could represent small mesenteric inflammation There are no inflammatory changes of the appendix There are no fluid collections in the abdomen or pelvis. There is no bowel obstruction. Large calcified regions of the uterus compatible with a fibroid uterus The urinary bladder is unremarkable. Evaluation of the large and small bowel limited because of lack of oral contrast ; if clinically warranted recommend additional imaging IMPRESSION: Small hiatal dense or low-attenuation lesions of the spleen are nonspecific Status post cholecystectomy Myomatous uterus Possible mild narrowing of the origin of the SMA. Consider further evaluation as clinically warranted Other comments as noted above PRELIMINARY REPORT PROVIDED BY RADIOLOGIST HITCH TECHNICIAN Reported By: Michael Cline MD 08/10/191213 Technologist: Issa Garcia Transcribed Date/Time: 08/10/191213 Process Helper: Michael Cline Printed Date/Time: By: Signed by: Michael Cline Signed on: 10-Aug-2019 12:16) Problem List - Problems (1) Nausea & vomiting Code(s): R11.2 - NAUSEA WITH VOMITING, UNSPECIFIED (2) Diarrhea Code(s): R19.7 - DIARRHEA, UNSPECIFIED (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 - STRICTURE OF ARTERY (4) Hemolytic anemia Code(s): D58.9 - HEREDITARY HEMOLYTIC ANEMIA, UNSPECIFIED (5) History of bacterial meningitis Code(s): Z86.61 - PERSONAL HISTORY OF INFECTIONS OF THE CENTRAL NERVOUS SYSTEM (6) History of CVA in adulthood Code(s): Z86.73 - PRSNL HX OF TIA (TIA), AND CEREB INFRC W/O RESID DEFICITS (7) History of myocardial infarction in adulthood Code(s): I25.2 - OLD MYOCARDIAL INFARCTION (8) Abdominal pain Code(s): R10.9 - UNSPECIFIED ABDOMINAL PAIN Qualifiers: Abdominal location: generalized Qualified Code(s): R10.84 - Generalized abdominal pain Assessment/Plan Assessment: - No evidence of active GI bleeding but given her N/V, anemia and h/o a major ulcer bleeding a PPI drip will be initiated. I suspect however that she has a viral gastroenteritis causing N/V with diarrhea. - Her RLQ pain corresponds to the cecum and her earlier nighthawk reading suggested cecal wall thickening. She could have an infectious enterocolitis or ischemic colitis but will ultimately need a colonoscopy to exclude a cecal malignancy and Crohns disease. I have explained this to her. At present she could not tolerate a bowel prep. She denies a history of intestinal angina and was eating well and moving her bowels regularly up until a few days ago - Dilated CBD can be the residual if ERCP with stone extraction and her cholecystectomy but given her elevated alkaline phosphatase further investigation with MRCP may need to be considered. Will check GGTP. Her indirect hyperbilirubinemia likely reflects her hemolytic anemia. Plan: -- PPI therapy -- Clear liquids -- Follow CBCs and LFTs -- Will ultimately need colonoscopy and perhaps a MRCP The [facility] GI service will assume care tomorrow
[2019-08-10] MEDS: PANTOPRAZOLE SODIUM 80 MG in SODIUM CHLORIDE 100 ML IVPB SCH (16:26)
[2019-08-10] MEDS ORDERED: cefTRIAXone SODIUM 1 GM VIAL ONE (19:41)
[2019-08-10] MEDS ORDERED: DEXTROSE 5%-WATER - 50 ML IVPB ONE (19:42)
[2019-08-10] MEDS: CEFTRIAXONE 1 GM in DEXTROSE 5%-WATER - 50 ML IVPB SCH (19:49)
[2019-08-10] MEDS: predniSONE 10 MG TABLET (UD) PO SCH (19:50)
[2019-08-11] MEDS ORDERED: PT OWN MED DRAWER 7, Y5N ONE (01:00)
[2019-08-11] MEDS: PANTOPRAZOLE SODIUM 80 MG in SODIUM CHLORIDE 100 ML IVPB SCH ×4 (01:04→21:30)
[2019-08-11] MEDS: SODIUM CHLORIDE 1,000 ML IV SCH ×2 (03:34→13:49)
[2019-08-11 08:14] LABS: ALBUMIN 2.6 g/dl (3.4-5.0); ALK PHOS 190 U/L (45-117); AMYLASE 44 U/L (25-115); ANION GAP 6 MMOL/L (8-16); BILIRUBIN,DIRECT 0.3 mg/dL (0.0-0.2); BILIRUBIN,TOTAL 0.7 mg/dL (0.2-1); BLOOD UREA NITROGEN 10.2 mg/dL (7-18); CALCIUM 8.3 mg/dL (8.5-10.1); CHLORIDE 114 mmol/L (98-107); CO2 24 mmol/L (21-32); GAMMA GLUTAMYL TRANSPEPTIDASE 250 U/L (5-85); GLUCOSE,RANDOM 102 mg/dL (74-106); LIPASE 118 U/L (73-393); POTASSIUM 5.1 mmol/L (3.5-5.1); SGOT/AST 18 U/L (15-37); SGPT/ALT 31 U/L (13-61); SODIUM 143 mmol/L (136-145); TOT PROT 5.6 g/dl (6.4-8.2)
[2019-08-11 08:26] LABS: IRON SERUM 57 ug/dL (50-175); TOTAL IRON BINDING CAPACITY 181 ug/dL (250-450)
--- NOTE | 2019-08-11 09:05 | PN ---
Progress Note (short form) - Note Progress Note: Vascular surgery CT scan reviewed. Very unlikely that pt's pain is coming from mild narrowing of SMA. Seems more of a colitis picture. For mesenteric ischemia to manifest, pt would need two out of the three mesenteric vessels to have severe stenosis. The celiac and LESLIE are patent. Medical management. Patrice Gallego DO
[2019-08-11 10:13] LABS: BASO % 0.3 % (0-2.0); EOS % 0.1 % (0-4.5); HEMATOCRIT 17.9 % (32.4-45.2); LYMPH % 23.7 % (8-40); MCH 33.6 pg (25.7-33.7); MCHC 34.9 g/dl (32.0-36.0); MONO % 2.6 % (3.8-10.2); NEUT % 73.3 % (42.8-82.8); PLATELET COUNT 329 K/MM3 (134-434); RBC 1.87 M/mm3 (3.60-5.2); RETICULOCYTES 4.41 % (0.5-1.5); WHITE BLOOD COUNT 8.1 K/mm3 (4.0-10.0)
[2019-08-11 10:17] LABS: HEMOGLOBIN 6.3 GM/dL (10.7-15.3)
[2019-08-11] MEDS ORDERED: DEXTROSE 5%-WATER - 50 ML IVPB ONE (10:23)
[2019-08-11] MEDS ORDERED: cefTRIAXone SODIUM 1 GM VIAL ONE (10:23)
[2019-08-11] MEDS: CEFTRIAXONE 1 GM in DEXTROSE 5%-WATER - 50 ML IVPB SCH (10:30)
[2019-08-11] MEDS: FOLIC ACID 1 MG TABLET (FP) PO SCH (10:32)
[2019-08-11] MEDS: predniSONE 10 MG TABLET (UD) PO SCH (10:32)
[2019-08-11] MEDS: morphine SULFATE 4 MG/ML VIAL IVPUSH PRN ×2 (10:52→21:33)
--- NOTE | 2019-08-11 16:38 | PN ---
Progress Note (short form) - Note Progress Note: Patient seen and examined Labs reviewed Abdomen pain free. Has been eating today. Per vascular SMA narrowing not significant enough to cause sx Vital Signs Temp 98.0 F 08/11/19 15:05 Pulse 72 08/11/19 15:05 Resp 18 08/11/19 15:05 BP 148/62 08/11/19 15:05 Pulse Ox 98 08/10/19 21:00 NAD Anicteric CBC, BMP 08/11/19 07:05 08/11/19 07:05 Impression: R colon wall thickening, ? isolated right colon ischemia vs infectious vs inflammatory Pending hematology addressing hemolysis, would tentatively plan for colonoscopy , possible EGD (h/o N/V) on Sunday Tentatively put on clears for tomorrow - if ok with heme, will order bowel prep
--- NOTE | 2019-08-11 16:41 | PN ---
Progress Note (short form) - Note Progress Note: Hematology and oncology follow up Subjective: Patient seen and examined at bedside. No events overnight. Patient continues to complain of mild nausea. Objective: Vital Signs Temperature 98.0 F 08/11/19 15:05 Pulse Rate 72 08/11/19 15:05 Respiratory Rate 18 08/11/19 15:05 Blood Pressure 148/62 08/11/19 15:05 O2 Sat by Pulse Oximetry (%) 98 08/10/19 21:00 Physical exam: Gen.: patient found lying in bed. Well appearing. Awake, alert. Lungs: clear to auscultation bilaterally down to the bases. Heart: regular rate and rhythm. S1, S2 heard. No murmurs gallops or rubs heard. Abdomen: soft, nontender, nondistended. Bowel sounds heard. Extremities: no peripheral edema noted. No bruising, swelling, erythema or warmth of extremities noted. neuro: patient A&O x3. Moving all four limbs spontaneously Active Medications Acetaminophen (Tylenol -) 650 mg PO Q4H PRN PRN Reason: PAIN LEVEL 1-5 Folic Acid (Folic Acid -) 1 mg PO DAILY [facility] Last Admin: 08/11/19 10:32 Dose: 1 mg Ceftriaxone Sodium 1 gm/ (Dextrose) 50 mls @ 100 mls/hr IVPB DAILY [facility]; Protocol Last Admin: 08/11/19 10:30 Dose: 100 mls/hr Metronidazole (Flagyl 500mg Premixed Ivpb -) 500 mg in 100 mls @ 100 mls/hr IVPB Q8H-IV TRAM Last Admin: 08/11/19 18:52 Dose: 100 mls/hr Sodium Chloride (Normal Saline -) 1,000 mls @ 150 mls/hr IV ASDIR TRAM Last Admin: 08/11/19 13:49 Dose: 150 mls/hr Pantoprazole Sodium 80 mg/ (Sodium Chloride) 100 mls @ 10 mls/hr IVPB Q10H TRAM Last Admin: 08/11/19 18:45 Dose: 10 mls/hr Morphine Sulfate (Morphine Sulfate) 4 mg IVPUSH Q4H PRN PRN Reason: PAIN LEVEL 6-10 Last Admin: 08/11/19 10:52 Dose: 4 mg Prednisone (Deltasone -) 70 mg PO DAILY [facility] Home Medications Medication Instructions Recorded Folic Acid 1 mg PO DAILY 08/09/19 Pantoprazole Sodium 40 mg PO DAILY 08/09/19 Prednisolone [Millipred] 10 mg PO DAILY 08/09/19 Allergies Allergy/AdvReac Type Severity Reaction Status Date / Time Penicillins Allergy Verified 08/09/19 19:01 CBC, BMP 08/11/19 07:05 08/11/19 07:05 Laboratory Tests 08/10/19 08/11/19 08/11/19 07:40 07:05 07:05 Retic Count 4.41 H Total Bilirubin 0.7 Direct Bilirubin 0.3 H GGT 250 H AST 18 ALT 31 Alkaline Phosphatase 190 H LD Total C-Reactive Protein 12.3 H Cold Agglutinins 1:256 H 08/11/19 13:44 Retic Count Total Bilirubin Direct Bilirubin GGT AST ALT Alkaline Phosphatase LD Total 261 H C-Reactive Protein Cold Agglutinins Assessment and plan: The patient is a 64 yo f w/ PMH known cold agglutinin syndrome (Dx 2014) who comes into the ED c/o nausea, abdominal pain and NBNB vomiting. 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 Villarreal ([phone]), patient's primary die designer apprentice; Patient was diagnosed in 2014, received IVIG and rituximab after which the patient went into remission. She had a flare in 2016 which was controlled with another round of rituximab. Since then she has been maintained on 5mg prednisone daily. -On 07/11, the patient was seen and she was noted to have a slight increase in her retics. Her prednisone was increased to 10mg daily and she was scheduled to follow up with him today. He was likely going to admit her. -will try pulse dose steroids first -if patient refractory to steroids, will begin rituxin infusion and d/c to follow up as outpatient once stable
--- NOTE | 2019-08-11 21:45 | PN ---
Progress Note (short form) - Note Progress Note: HPI: Pt without any complaints today. No symptoms reports. Denies light headedness, dizziness, shortness of breath, chest pain, palpitations, abdominal pain during rest, diarrhea/constipation, fever/chills. PE: GEN: NAD, patient found lying in bed. Awake, alert. Lungs: CTA bilaterally down to the bases. No wheezing Heart: RRR. S1, S2 heard. No murmurs Abdomen: soft, NT/ND. normoactive Bowel sounds heard. Extremities: no peripheral edema noted. No bruising, swelling, erythema or warmth of extremities noted. neuro: patient A&O x3. Moving all four limbs spontaneously CBC, BMP 08/11/19 07:05 08/11/19 07:05 Hepatic Panel Total Bilirubin 0.7 mg/dL (0.2-1) 08/11/19 07:05 Direct Bilirubin 0.3 mg/dL (0.0-0.2) H 08/11/19 07:05 AST 18 U/L (15-37) 08/11/19 07:05 ALT 31 U/L (13-61) 08/11/19 07:05 Alkaline Phosphatase 190 U/L (45-117) H 08/11/19 07:05 Albumin 2.6 g/dl (3.4-5.0) L 08/11/19 07:05 Microbiology 08/09/19 20:05 Blood - Peripheral Venous Blood Culture - Preliminary NO GROWTH OBTAINED AFTER 48 HOURS, INCUBATION TO CONTINUE FOR 3 DAYS. 08/09/19 20:00 Blood - Peripheral Venous Blood Culture - Preliminary NO GROWTH OBTAINED AFTER 48 HOURS, INCUBATION TO CONTINUE FOR 3 DAYS. 08/09/19 22:25 Urine - Urine Clean Catch Urine Culture - Preliminary Proteus Species Active Medications Acetaminophen (Tylenol -) 650 mg PO Q4H PRN PRN Reason: PAIN LEVEL 1-5 Folic Acid (Folic Acid -) 1 mg PO DAILY TRAM Last Admin: 08/11/19 10:32 Dose: 1 mg Ceftriaxone Sodium 1 gm/ (Dextrose) 50 mls @ 100 mls/hr IVPB DAILY TRAM; Protocol Last Admin: 08/11/19 10:30 Dose: 100 mls/hr Metronidazole (Flagyl 500mg Premixed Ivpb -) 500 mg in 100 mls @ 100 mls/hr IVPB Q8H-IV TRAM Last Admin: 10/21/19 18:52 Dose: 100 mls/hr Sodium Chloride (Normal Saline -) 1,000 mls @ 150 mls/hr IV ASDIR TRAM Last Admin: 08/11/19 13:49 Dose: 150 mls/hr Pantoprazole Sodium 80 mg/ (Sodium Chloride) 100 mls @ 10 mls/hr IVPB Q10H TRAM Last Admin: 08/11/19 21:30 Dose: 10 mls/hr Morphine Sulfate (Morphine Sulfate) 4 mg IVPUSH Q4H PRN PRN Reason: PAIN LEVEL 6-10 Last Admin: 08/11/19 21:33 Dose: 4 mg Prednisone (Deltasone -) 70 mg PO DAILY [facility] Assessment and Plan: Acute hemolytic anemia Abdominal pain 2/2 to above vs. SMA narrowing Urinary Tract Infection Peptic ulcer disease H/o TIA --Pt's AM Hgb 6.3; ordered 1UPRBC --Delay in transfusion as pt is declining until further allowed by her and/or cable cutter and swager --Hematology on board --Continue 1mg/kg corticosteroids for hemolysis --All fluids must be warmed to body temperature to prevent agglutination --TBili downtrending today; if increases again may have to consider further imaging --Rocephin day 2 today; prelim urinary culture growing proteus --Will follow-up final read and sensitivities FEN: Fluids: PO; avoid any cold fluids Electrolyte abnormalities: None Nutrition: Advance to clears today and tomorrow; NPO at Sunday for possible GI procedure PPX: DVT - SCDs only GI - Protonix gtt Dispo: continue to monitor Case discussed with Dr. Holloway and Hematology team Jeffery Hook, - IM PGY-3 <Jeffery Hook - Last Filed: 08/11/19 21:47> - Note Progress Note: Seen and examined; please see resident note for further historical information. I personally verified all bruce historical information and exam findings. Personally interpreted all imaging and diagnostics and reviewed appropriate consults. I reviewed all labs and vital signs as per resident note and EMR as documented. I agree with the above assessment and plan unless supplemented by myself in the following. Seen and examined, no new complaints. No active bleeding noted. I spoke with the for an extended period of time regarding the overall care. I received the patient's outpatient cable cutter and swager contact information we will phone them to discuss the case later on. Patient declined transfusion originally secondary to her concerns regarding of it not being discussed with her cable cutter and swager. We will attempt to alleviate her concerns. VS, labs, imaging reviewed NAD, AAO, resting comfortably in bed. RRR s1/2 no mgr Normal muscle tone, moves all 5 extremities with normal apparent strength Neck is supple, trachea midline, no juana LN Lungs CTAB with sym expansion NT ND +BS no juana organomegaly CN2-12 wnl; no FND NC AT EOMI PERRLA Normal mood, appropriate behavior, euthymic affect No skin breakdown or rashes noted Assessment and plan Patient presents to the medicine service with acute cold agglutinin hemolytic anemia and is being followed by hematology, we are discussing the case with her outpatient cable cutter and swager as well. Her urine culture is growing Proteus, she is on Rocephin day 2. We will continue all antibiotics as indicated, discussing with infectious disease regarding the final course. Problems include: Acute on chronic anemia Autoimmune hemolytic anemia Elevated bilirubin, considering MRCP UTI Suspected colitis Potential for ischemic colitis but felt less likely that by vascular surgery, appreciate consult. <Wayne Holloway - Last Filed: 08/12/19 11:14>
--- NOTE | 2019-08-11 23:33 | PN ---
Progress Note (short form) - Note Progress Note: Patient seen and examined c/o night sweats Denies wt. loss AFVSS Cor: RSR, No murmurs, No gallops Lungs: Clear to P&A Abd: Soft, Normal bowel sounds, No organomegaly Ext:No significant edema Labs/Meds reviewed A/P 64 y/o patient with h/o cold agglutinin hemolytic anemia, last treated with rituxan in 2017. Is on prednisone maintenance of 5mg daily Comes in with worsening anemia from baseline of 10-11 to 6.3 LDH --nl. cold agglutinin --1:256. Transfuse 1 unit PRBCs Will increase prednisone check Hep B profile in anticipation for rituxan check flow/cytogenetics/FISH/SIFE/UIFE/THOMAS/RF/ESR CT a/p --no retroperitoneal adenopathy. Narrowing of SMA? Check CT chest May need bone marrow bx based on cresults of w/u Will need close hematology f/u out patient
[2019-08-12] MEDS ORDERED: ONDANSETRON 4 MG/2 ML VIAL IVPUSH PRN (05:43)
[2019-08-12] MEDS: PANTOPRAZOLE SODIUM 80 MG in SODIUM CHLORIDE 100 ML IVPB SCH ×2 (06:57→16:53)
[2019-08-12] MEDS: SODIUM CHLORIDE 1,000 ML IV SCH (06:57)
[2019-08-12 08:25] LABS: HEMATOCRIT 15.3 % (32.4-45.2); MEAN CELL VOLUME 97.7 fl (80-96); RBC 1.56 M/mm3 (3.60-5.2); RDW 17.7 % (11.6-15.6); WHITE BLOOD COUNT 10.1 K/mm3 (4.0-10.0)
[2019-08-12 08:29] LABS: MCH 44.6 pg (25.7-33.7)
[2019-08-12 08:56] LABS: ALBUMIN 2.8 g/dl (3.4-5.0); BILIRUBIN,TOTAL 0.8 mg/dL (0.2-1); BLOOD UREA NITROGEN 8.7 mg/dL (7-18); CALCIUM 8.2 mg/dL (8.5-10.1); CREATININE 1.1 mg/dL (0.55-1.3); POTASSIUM 3.6 mmol/L (3.5-5.1); TOT PROT 5.4 g/dl (6.4-8.2)
[2019-08-12 09:20] LABS: MCHC 33.6 g/dl (32.0-36.0); PLATELET COUNT 335 K/MM3 (134-434); RETICULOCYTES 0.08 % (0.5-1.5)
[2019-08-12 09:21] LABS: MEAN PLT VOLUME 8.8 fl (7.5-11.1)
[2019-08-12 10:24] LABS: ERYTHROCYTE SEDIMENTATION RATE 94 mm/hr (0-30)
[2019-08-12] MEDS ORDERED: cefTRIAXone SODIUM 1 GM VIAL ONE (10:42)
[2019-08-12] MEDS ORDERED: DEXTROSE 5%-WATER - 50 ML IVPB ONE (10:42)
[2019-08-12] MEDS: CEFTRIAXONE 1 GM in DEXTROSE 5%-WATER - 50 ML IVPB SCH (10:44)
[2019-08-12] MEDS: predniSONE 20 MG TABLET (UD) PO SCH (10:45)
[2019-08-12] MEDS: FOLIC ACID 1 MG TABLET (FP) PO SCH (10:46)
--- NOTE | 2019-08-12 12:08 | CON.ID ---
Consult Consult Specialty:: infectious diseases Referred by:: Reason for Consultation:: vomitng,dairrhoea,weakness,leukocytosis - History of Present Illness Chief Complaint: weakness,dirrhoea History of Present Illness: 64 y/o F with PMH of cold agglutinin hemolytic anemia, PUD/GERD, NE (2014), TIA , bacterial meningitis(2007), cholecystectomy (2011) presenting with 3 days of worsening abdominal pain rating 8/10 in severity with associated 6-7 episodes NBNB nausea/vomiting and non bloody diarrhea. 5 day ago patient noticed that her pain in getting worse; it became more frequent, stabbing like in the LLQ then migrating to the RLQ although she felt pain in her whole abdomen. . pt denies any fevers/chills,headaches, dizziness, chest pain, SOB, or change in her urine color or BMs. pt endorsed non productive cough. Pt admits to not following up with any of her outpatient physicians denies any bleeding patient was worked up found to be anemic and was transfused - History Source History Provided By: Patient Limitations to Obtaining History: No Limitations - Past Medical History DIRECTOR OF RETENTION: Yes: CVA (2007 right hemiparesis with resolution), Other (Bacterial meningitis in 2007) Gastrointestinal: Yes: GI Bleed (gastric ulcer bleed 2014), Peptic Ulcer Disease Hepatobiliary: Yes: Cholelithiasis (s/p lap choly 2011), Choledocholithiasis (s/ p ERCP with Dr Munson 2011 with stone extraction) ...: No - Past Surgical History Past Surgical History: Yes: Cholecystectomy (laparoscopic in 2011 - Dr Hoff) , Tonsillectomy - Alcohol/Substance Use Hx Alcohol Use: No History of Substance Use: reports: None - Smoking History Smoking history: Current every day smoker Have you smoked in the past 12 months: Yes Aproximately how many cigarettes per day: 7 - Social History Usual Living Arrangement: With Spouse ADL: Independent 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 History of Recent Travel: No Home Medications - Allergies Allergies/Adverse Reactions: Allergies Allergy/AdvReac Type Severity Reaction Status Date / Time Penicillins Allergy Verified 08/09/19 19:01 - Home Medications Home Medications: Ambulatory Orders Folic Acid 1 mg PO DAILY 08/09/19 Pantoprazole Sodium 40 mg PO DAILY 08/09/19 Prednisolone [Millipred] 10 mg PO DAILY 08/09/19 Review of Systems - Review of Systems Constitutional: reports: Fever (low grade), Weakness Eyes: reports: No Symptoms HENT: reports: No Symptoms Neck: reports: No Symptoms Cardiovascular: reports: No Symptoms Respiratory: reports: No Symptoms Gastrointestinal: reports: Abdominal Pain, Diarrhea Musculoskeletal: reports: No Symptoms Integumentary: reports: No Symptoms Neurological: reports: No Symptoms Endocrine: reports: No Symptoms Hematology/Lymphatic: reports: No Symptoms Psychiatric: reports: No Symptoms Physical Exam Vital Signs: Vital Signs Temperature 98.3 F 08/12/19 10:00 Pulse Rate 81 08/12/19 10:00 Respiratory Rate 18 08/12/19 10:00 Blood Pressure 141/65 08/12/19 10:00 O2 Sat by Pulse Oximetry (%) 98 08/12/19 07:57 Constitutional: Yes: Well Nourished, No Distress, Calm Eyes: Yes: Other (pale conjunctiva) HENT: Yes: Atraumatic, Normocephalic Neck: Yes: Supple Cardiovascular: Yes: Regular Rate and Rhythm Respiratory: Yes: Regular, CTA Bilaterally Gastrointestinal: Yes: Normal Bowel Sounds, Soft Musculoskeletal: Yes: WNL Extremities: Yes: WNL Neurological: Yes: Alert, Oriented Psychiatric: Yes: Alert, Oriented Labs: CBC, BMP 08/12/19 07:35 08/12/19 07:35 Imaging - Results Chest X-ray: Report Reviewed, Image Reviewed Cat Scan: Report Reviewed, Image Reviewed Ultrasound: Report Reviewed, Image Reviewed Assessment/Plan Problem List - Problems (1) Nausea & vomiting Code(s): R11.2 - NAUSEA WITH VOMITING, UNSPECIFIED (2) Diarrhea Code(s): R19.7 - DIARRHEA, UNSPECIFIED (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 - STRICTURE OF ARTERY (4) Hemolytic anemia Code(s): D58.9 - HEREDITARY HEMOLYTIC ANEMIA, UNSPECIFIED (5) History of bacterial meningitis Code(s): Z86.61 - PERSONAL HISTORY OF INFECTIONS OF THE CENTRAL NERVOUS SYSTEM (6) History of CVA in adulthood Code(s): Z86.73 - PRSNL HX OF TIA (TIA), AND CEREB INFRC W/O RESID DEFICITS (7) History of myocardial infarction in adulthood Code(s): I25.2 - OLD MYOCARDIAL INFARCTION (8) Abdominal pain Code(s): R10.9 - UNSPECIFIED ABDOMINAL PAIN Qualifiers: Abdominal location: generalized Qualified Code(s): R10.84 - Generalized abdominal pain i suspect patients symptoms are viral,she is recovering from it,though i do not know if the findings of her sm re new or if that was the cause of her symptoms close watch other symptoms probably dues to hemolytic anemia close watch hydration transfusion as needed will continue to monitor rest as per the team
--- NOTE | 2019-08-12 18:44 | PN ---
Progress Note (short form) - Note Progress Note: Patient seen and examined with Dr. Brown, agree with his note plan and recommendations S: Abdominal discomfort resolving, ready to have dinner at the time of our interview O: Last Vital Signs Temp Pulse Resp BP Pulse Ox 98.4 F 73 18 123/67 98 08/12/19 15:12 08/12/19 15:12 08/12/19 15:12 08/12/19 15:12 08/12/19 07:57 AFVSS Cor: RSR, No murmurs, No gallops Lungs: Clear to P&A Abd: Soft, Normal bowel sounds, No organomegaly Ext:No significant edema 08/12/19 07:35 08/12/19 07:35 Current Medications Acetaminophen (Tylenol -) 650 mg PO Q4H PRN PRN Reason: PAIN LEVEL 1-5 Last Admin: 08/12/19 16:53 Dose: 650 mg Folic Acid (Folic Acid -) 1 mg PO DAILY TRAM Last Admin: 08/12/19 10:46 Dose: 1 mg Ceftriaxone Sodium 1 gm/ (Dextrose) 50 mls @ 100 mls/hr IVPB DAILY TRAM; Protocol Last Admin: 08/12/19 10:44 Dose: 100 mls/hr Metronidazole (Flagyl 500mg Premixed Ivpb -) 500 mg in 100 mls @ 100 mls/hr IVPB Q8H-IV TRAM Last Admin: 08/12/19 10:45 Dose: 100 mls/hr Pantoprazole Sodium 80 mg/ (Sodium Chloride) 100 mls @ 10 mls/hr IVPB Q10H TRAM Last Admin: 08/12/19 16:53 Dose: 10 mls/hr Ondansetron HCl (Zofran Injection) 4 mg IVPUSH Q6H PRN PRN Reason: NAUSEA AND/OR VOMITING Last Admin: 08/12/19 05:55 Dose: 4 mg Prednisone (Deltasone -) 70 mg PO DAILY TRAM Last Admin: 08/12/19 10:45 Dose: 70 mg A/P 64 y/o lady with h/o cold agglutinin hemolytic anemia, last treated with rituxan in 2017. Is on prednisone maintenance of 5mg daily Comes in with worsening anemia from baseline of 10-11 to 6.3 LDH --nl. cold agglutinin --1:256. Transfused 1 unit PRBCs Prednisone incread up to 70 mg po daily--> No overt effect yet but explained to patient that may take several days before an effect is seen check Hep B profile in anticipation for rituxan check flow/cytogenetics/FISH/SIFE/UIFE/THOMAS/RF/ESR CT a/p --no retroperitoneal adenopathy. Narrowing of SMA? Check CT chest May need bone marrow bx based on results of w/u Will need close hematology f/u out patient
--- NOTE | 2019-08-12 20:14 | PN.GI ---
GI Progress Note Subjective: No acute events Abdominal pain present but improved Dose of prednisone escalated - Objective Vital Signs: Vital Signs Temperature 99.2 F 08/12/19 18:00 Pulse Rate 81 08/12/19 18:00 Respiratory Rate 18 08/12/19 18:00 Blood Pressure 147/57 L 08/12/19 18:00 O2 Sat by Pulse Oximetry (%) 98 08/12/19 07:57 Constitutional: Calm Eyes: No: Sclera Icterus Cardiovascular: Yes: Regular Rate and Rhythm. No: Murmur Respiratory: Yes: CTA Bilaterally Gastrointestinal Inspection: No: Distention ...Auscultate: Yes: Normoactive Bowel Sounds ...Palpate: Yes: Soft, Tenderness (Mild TTP mid abdomen). No: Hepatomegaly, Splenomegaly ...Percussion: No: Tympanitic Edema: No (No LE edema) Neurological: Yes: Alert Labs: CBC, BMP 08/12/19 07:35 08/12/19 07:35 INR, PTT INR 1.25 (0.83-1.09) H 08/09/19 20:00 Hepatic Panel Total Bilirubin 0.8 mg/dL (0.2-1) 08/12/19 07:35 Direct Bilirubin 0.3 mg/dL (0.0-0.2) H 08/11/19 07:05 AST 18 U/L (15-37) 08/12/19 07:35 ALT 29 U/L (13-61) 08/12/19 07:35 Alkaline Phosphatase 179 U/L (45-117) H 08/12/19 07:35 Albumin 2.8 g/dl (3.4-5.0) L 08/12/19 07:35 Problem List - Problems (1) Diarrhea Assessment/Plan: Resolved Code(s): R19.7 - DIARRHEA, UNSPECIFIED (2) Nausea & vomiting Assessment/Plan: Resolved. Some mild mid abdominal tenderness Consider vascular consult to comment of SMA findings Ordered MRCP to evaluate CBD dilatation and elevated ALP Stopped PPI drip, no need. Changed to protonix 40mg daily Full liquids Ordered GGT Code(s): R11.2 - NAUSEA WITH VOMITING, UNSPECIFIED (3) Hemolytic anemia Assessment/Plan: Spoke with gut puller Dr. Luther cleveland. Would like to wait prior to EGD/ Colonoscopy to see if escalated dose of prednisone stabil;izes her hemolytic anemia. Agree as there is no urgency for procedures at this time. Monitor for overt bleeding Code(s): D58.9 - HEREDITARY HEMOLYTIC ANEMIA, UNSPECIFIED
--- NOTE | 2019-08-12 20:46 | PN ---
Progress Note (short form) - Note Progress Note: HPI: Pt complains of wanting regular food. Otherwise denies any active bleeding , pain, shortness of breath, chest pain, palpitations, dizziness/ lightheadedness. PE: GEN: NAD, Awake, alert. Lungs: CTA bilaterally down to the bases. No wheezing Heart: RRR. S1, S2 heard. No murmurs Abdomen: soft, NT/ND. normoactive Bowel sounds heard. Extremities: no peripheral edema noted. No bruising, swelling, erythema or warmth of extremities noted. neuro: patient A&O x3. Moving all four limbs spontaneously CBC, BMP 08/12/19 07:35 08/12/19 07:35 Hepatic Panel Total Bilirubin 0.8 mg/dL (0.2-1) 08/12/19 07:35 Direct Bilirubin 0.3 mg/dL (0.0-0.2) H 08/11/19 07:05 AST 18 U/L (15-37) 08/12/19 07:35 ALT 29 U/L (13-61) 08/12/19 07:35 Alkaline Phosphatase 179 U/L (45-117) H 08/12/19 07:35 Albumin 2.8 g/dl (3.4-5.0) L 08/12/19 07:35 Active Medications Acetaminophen (Tylenol -) 650 mg PO Q4H PRN PRN Reason: PAIN LEVEL 1-5 Last Admin: 08/12/19 16:53 Dose: 650 mg Folic Acid (Folic Acid -) 1 mg PO DAILY TRAM Last Admin: 08/12/19 10:46 Dose: 1 mg Ceftriaxone Sodium 1 gm/ (Dextrose) 50 mls @ 100 mls/hr IVPB DAILY TRAM; Protocol Last Admin: 08/12/19 10:44 Dose: 100 mls/hr Metronidazole (Flagyl 500mg Premixed Ivpb -) 500 mg in 100 mls @ 100 mls/hr IVPB Q8H-IV TRAM Last Admin: 08/12/19 18:58 Dose: 100 mls/hr Ondansetron HCl (Zofran Injection) 4 mg IVPUSH Q6H PRN PRN Reason: NAUSEA AND/OR VOMITING Last Admin: 08/12/19 05:55 Dose: 4 mg Pantoprazole Sodium (Protonix -) 40 mg PO DAILY TRAM Prednisone (Deltasone -) 70 mg PO DAILY TRAM Last Admin: 08/12/19 10:45 Dose: 70 mg Microbiology 08/09/19 20:05 Blood - Peripheral Venous Blood Culture - Preliminary NO GROWTH OBTAINED AFTER 72 HOURS, INCUBATION TO CONTINUE FOR 2 DAYS. 08/09/19 20:00 Blood - Peripheral Venous Blood Culture - Preliminary NO GROWTH OBTAINED AFTER 72 HOURS, INCUBATION TO CONTINUE FOR 2 DAYS. 08/09/19 22:25 Urine - Urine Clean Catch Urine Culture - Final Escherichia Fergusonii Assessment and Plan: Acute hemolytic anemia Abdominal pain 2/2 to above vs. SMA narrowing Urinary Tract Infection Enlarged CBD Peptic ulcer disease H/o TIA --Pt's AM Hgb 7.1 today --Transfusion threshold 7.0; MUST WARM PRBC if transfusion to occur --Reticulocytes remain high --Continue 1mg/kg corticosteroids for hemolysis (Prednisone 70mg qdaily) --All fluids must be warmed to body temperature to prevent agglutination --MRCP ordered for tomorrow; EGD delayed due to no need of urgency. --Rocephin day 3 today; f/u final urinary culture read and sensitivity --Appreciate all strategic planning consultant recommendations FEN: Fluids: PO; avoid any cold fluids Electrolyte abnormalities: None Nutrition: Advance to clears today and tomorrow; NPO at Sunday for possible GI procedure PPX: DVT - SCDs only GI - Decrease Protonix to daily Dispo: continue to monitor Case discussed with Dr. Jewel Hook, DO - IM PGY-3 <Jeffery Hook - Last Filed: 08/12/19 20:45> - Note Progress Note: Seen and examined; please see resident note for further historical information. I personally verified all bruce historical information and exam findings. Personally interpreted all imaging and diagnostics and reviewed appropriate consults. I reviewed all labs and vital signs as per resident note and EMR as documented. I agree with the above assessment and plan unless supplemented by myself.Patient has no new complaints today, no abdominal pain noted. Patient is n.p.o. for possible EGD. Will discuss with gastroenterology services. 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 Denies any chest pain shortness of breath diarrhea or nausea. VS, labs, imaging reviewed NAD, AAO, resting comfortably in bed. RRR s1/2 no mgr Normal muscle tone, moves all 5 extremities with normal apparent strength Neck is supple, trachea midline, no juana LN Lungs CTAB with sym expansion NT ND +BS no juana organomegaly CN2-12 wnl; no FND NC AT EOMI PERRLA Normal mood, appropriate behavior, euthymic affect No skin breakdown or rashes noted Assessment and plan Acute hemolytic anemia secondary to cold agglutinin subtype Abdominal pain, improved UTI improved Enlarged common bile duct, pending MRCP. Peptic ulcer disease, delineating the timing of the EGD with gastroenterology. She is n.p.o. for now but may be advanced if the procedure is not urgent Overall the patient continues on prednisone and we will monitor her blood counts. Transfusion history noted. Improvement in hemoglobin noted today alongside atypical reticulocyte count, we will repeat the value in the morning to see if there is improvement. Discussed case with resident team and subspecialist Overall 30 minutes were spent in the care of this patient. <Wayne Holloway - Last Filed: 08/13/19 10:41>
--- NOTE | 2019-08-12 23:27 | PN ---
Progress Note (short form) - Note Progress Note: Hematology and oncology follow up Subjective: Patient seen and examined at bedside. No events overnight. no new complaints Objective: Vital Signs Temperature 98.0 F 08/11/19 15:05 Pulse Rate 72 08/11/19 15:05 Respiratory Rate 18 08/11/19 15:05 Blood Pressure 148/62 08/11/19 15:05 O2 Sat by Pulse Oximetry (%) 98 08/10/19 21:00 Physical exam: Gen.: patient found lying in bed. Well appearing. Awake, alert. Lungs: clear to auscultation bilaterally down to the bases. Heart: regular rate and rhythm. S1, S2 heard. No murmurs gallops or rubs heard. Abdomen: soft, nontender, nondistended. Bowel sounds heard. Extremities: no peripheral edema noted. No bruising, swelling, erythema or warmth of extremities noted. neuro: patient A&O x3. Moving all four limbs spontaneously Active Medications Acetaminophen (Tylenol -) 650 mg PO Q4H PRN PRN Reason: PAIN LEVEL 1-5 Folic Acid (Folic Acid -) 1 mg PO DAILY [facility] Last Admin: 08/11/19 10:32 Dose: 1 mg Ceftriaxone Sodium 1 gm/ (Dextrose) 50 mls @ 100 mls/hr IVPB DAILY TRAM; Protocol Last Admin: 08/11/19 10:30 Dose: 100 mls/hr Metronidazole (Flagyl 500mg Premixed Ivpb -) 500 mg in 100 mls @ 100 mls/hr IVPB Q8H-IV TRAM Last Admin: 08/11/19 18:52 Dose: 100 mls/hr Sodium Chloride (Normal Saline -) 1,000 mls @ 150 mls/hr IV ASDIR TRAM Last Admin: 08/11/19 13:49 Dose: 150 mls/hr Pantoprazole Sodium 80 mg/ (Sodium Chloride) 100 mls @ 10 mls/hr IVPB Q10H TRAM Last Admin: 08/11/19 18:45 Dose: 10 mls/hr Morphine Sulfate (Morphine Sulfate) 4 mg IVPUSH Q4H PRN PRN Reason: PAIN LEVEL 6-10 Last Admin: 08/11/19 10:52 Dose: 4 mg Prednisone (Deltasone -) 70 mg PO DAILY [facility] Home Medications Medication Instructions Recorded Folic Acid 1 mg PO DAILY 08/09/19 Pantoprazole Sodium 40 mg PO DAILY 08/09/19 Prednisolone [Millipred] 10 mg PO DAILY 08/09/19 Allergies Allergy/AdvReac Type Severity Reaction Status Date / Time Penicillins Allergy Verified 08/09/19 19:01 CBC, BMP 08/11/19 07:05 08/11/19 07:05 Laboratory Tests 08/10/19 08/11/19 08/11/19 07:40 07:05 07:05 Retic Count 4.41 H Total Bilirubin 0.7 Direct Bilirubin 0.3 H GGT 250 H AST 18 ALT 31 Alkaline Phosphatase 190 H LD Total C-Reactive Protein 12.3 H Cold Agglutinins 1:256 H 08/11/19 13:44 Retic Count Total Bilirubin Direct Bilirubin GGT AST ALT Alkaline Phosphatase LD Total 261 H C-Reactive Protein Cold Agglutinins Assessment and plan: The patient is a 64 yo f w/ PMH known cold agglutinin syndrome (Dx 2014) who comes into the ED c/o nausea, abdominal pain and NBNB vomiting. #Acute hemolytic crisis likely 2/2 UTI vs weather change -AM Hb 7.0 -s/p 1u PRBC -c/w 1mg/kg/day high dose steroids for approx. 3 days; monitor for improvement -Patient may require rituxin infusion if refractory to steroids -trend daily bili, retic, LDH, CBC, LFTs #history of cold agglutinin disease -spoke with Dr. Villarreal ([phone]), patient's primary healthcare economics consultant; he is in agreement with the above plan -if patient refractory to steroids, will begin rituxin infusion and d/c to follow up as outpatient once stable
[2019-08-13 07:54] LABS: BILIRUBIN,TOTAL 0.5 mg/dL (0.2-1); BLOOD UREA NITROGEN 10.7 mg/dL (7-18); CALCIUM 8.7 mg/dL (8.5-10.1); CREATININE 1.3 mg/dL (0.55-1.3); POTASSIUM 3.9 mmol/L (3.5-5.1); TOT PROT 5.7 g/dl (6.4-8.2)
--- NOTE | 2019-08-13 08:40 | PN ---
Progress Note (short form) - Note Progress Note: Seen and examined; please see resident note for further historical information. I personally verified all bruce historical information and exam findings. Personally interpreted all imaging and diagnostics and reviewed appropriate consults. I reviewed all labs and vital signs as per resident note and EMR as documented. I agree with the above assessment and plan unless supplemented by myself in the following Discussed case with resident team and subspecialty consultants, appreciate all care rendered. Overall patient remains hemodynamically stable and afebrile, apparently the has been inappropriate with nursing staff,'s talking about getting them fired and demanding to speak with supervisors. This was communicated to me several times, I also helped speak with him before. We will discuss further matters with him when he gets to the floor. EGD is nonurgent per gastroenterology, we will delineate if it should be performed inpatient versus outpatient. 10 item review of systems was completed and is negative aside from history of present illness. VS, labs, imaging reviewed NAD, AAO, resting comfortably in bed. RRR s1/2 no mgr Normal muscle tone, moves all 5 extremities with normal apparent strength Neck is supple, trachea midline, no juana LN Lungs CTAB with sym expansion NT ND +BS no juana organomegaly CN2-12 wnl; no FND NC AT EOMI PERRLA Normal mood, appropriate behavior, euthymic affect No skin breakdown or rashes noted Assessment and plan Patient is pending MRCP for dilated CBD, she continues on ceftriaxone, E. Fergusonii over 100,000 CFU's per milliliter grown in urine. She states her abdominal pain is improved and denies any diarrhea, nausea, or vomiting. She tolerated food this morning AI Hemolytics anemia Colg Algu (titers ++ for cold agl); continue with prednisone, followup with heme onc. Likely the cause of her anemia as opposed to acute blood loss picture) Acute UTI (Continue ceftriaxone; d/w ID. Off flagyl; Sn appreciated) Dilated CBD, pending MRCP Abdominal pain, improved <Wayne Holloway - Last Filed: 08/13/19 10:42> - Note Progress Note: HPI: Pt still upset about diet despite discussions about how it was advanced as soon as GI indicated there would be no procedure. Denies any lightheadedness, dizziness, shortness of breath, palpitations. PE: GEN: NAD, Awake, alert. Lungs: CTA bilaterally down to the bases. No wheezing Heart: RRR. S1, S2 heard. No murmurs Abdomen: soft, NT/ND. normoactive Bowel sounds heard. Extremities: no peripheral edema noted. No bruising, swelling, erythema or warmth of extremities noted. neuro: patient A&O x3. Moving all four limbs spontaneously CBC, BMP 08/13/19 06:45 08/13/19 06:45 Hepatic Panel Total Bilirubin 0.5 mg/dL (0.2-1) 08/13/19 06:45 Direct Bilirubin 0.3 mg/dL (0.0-0.2) H 08/11/19 07:05 AST 19 U/L (15-37) 08/13/19 06:45 ALT 29 U/L (13-61) 08/13/19 06:45 Alkaline Phosphatase 175 U/L (45-117) H 08/13/19 06:45 Albumin 3.0 g/dl (3.4-5.0) L 08/13/19 06:45 Active Medications Acetaminophen (Tylenol -) 650 mg PO Q4H PRN PRN Reason: PAIN LEVEL 1-5 Last Admin: 08/12/19 16:53 Dose: 650 mg Folic Acid (Folic Acid -) 1 mg PO DAILY [facility] Last Admin: 08/13/19 09:32 Dose: 1 mg Ceftriaxone Sodium 1 gm/ (Dextrose) 50 mls @ 100 mls/hr IVPB DAILY [facility]; Protocol Last Admin: 08/13/19 09:32 Dose: 100 mls/hr Ondansetron HCl (Zofran Injection) 4 mg IVPUSH Q6H PRN PRN Reason: NAUSEA AND/OR VOMITING Last Admin: 08/12/19 05:55 Dose: 4 mg Pantoprazole Sodium (Protonix -) 40 mg PO DAILY [facility] Last Admin: 08/13/19 09:32 Dose: 40 mg Prednisone (Deltasone -) 70 mg PO DAILY [facility] Last Admin: 08/13/19 09:32 Dose: 70 mg Microbiology 08/09/19 20:05 Blood - Peripheral Venous Blood Culture - Preliminary NO GROWTH OBTAINED AFTER 96 HOURS, INCUBATION TO CONTINUE FOR 1 DAYS. 08/09/19 20:00 Blood - Peripheral Venous Blood Culture - Preliminary NO GROWTH OBTAINED AFTER 96 HOURS, INCUBATION TO CONTINUE FOR 1 DAYS. 08/09/19 22:25 Urine - Urine Clean Catch Urine Culture - Final Escherichia Fergusonii Assessment and Plan: Acute hemolytic anemia Abdominal pain 2/2 to above vs. SMA narrowing Urinary Tract Infection Enlarged CBD Peptic ulcer disease H/o TIA --Pt's AM Hgb stable today --Transfusion threshold 7.0; MUST WARM PRBC if transfusion to occur --Reticulocytes lowering --Will require at minimum 1mg/kg pulse steroid dose for 5 days per heme --All fluids must be warmed to body temperature to prevent agglutination --MRCP negative for any biliary tree abnormalities --Rocephin day 4 today can transition to PO ABX in AM --Appreciate all treasury management sales consultant recommendations FEN: Fluids: PO; avoid any cold fluids Electrolyte abnormalities: None Nutrition: Regular diet PPX: DVT - SCDs only GI -Protonix daily Dispo: continue to monitor with steroids Case discussed with Dr. Jewel Hook, DO - IM PGY-3 <Jeffery Hook - Last Filed: 08/13/19 20:51>
[2019-08-13] MEDS ORDERED: DEXTROSE 5%-WATER - 50 ML IVPB ONE (09:18)
[2019-08-13] MEDS ORDERED: cefTRIAXone SODIUM 1 GM VIAL ONE (09:18)
[2019-08-13] MEDS: predniSONE 20 MG TABLET (UD) PO SCH (09:32)
[2019-08-13] MEDS: PANTOPRAZOLE 40 MG TABLET (FP) PO SCH (09:32)
[2019-08-13] MEDS: CEFTRIAXONE 1 GM in DEXTROSE 5%-WATER - 50 ML IVPB SCH (09:32)
[2019-08-13] MEDS: FOLIC ACID 1 MG TABLET (FP) PO SCH (09:32)
[2019-08-13 09:47] LABS: HEMOGLOBIN 7.4 GM/dL (10.7-15.3); MCH 32.2 pg (25.7-33.7); PLATELET COUNT 390 K/MM3 (134-434); RBC 2.28 M/mm3 (3.60-5.2); RDW 17.9 % (11.6-15.6); RETICULOCYTES 3.37 % (0.5-1.5)
--- NOTE | 2019-08-13 10:52 | PN ---
Progress Note, Physician History of Present Illness: stable no new issues - Current Medication List Current Medications: Active Medications Acetaminophen (Tylenol -) 650 mg PO Q4H PRN PRN Reason: PAIN LEVEL 1-5 Last Admin: 08/12/19 16:53 Dose: 650 mg Folic Acid (Folic Acid -) 1 mg PO DAILY [facility] Last Admin: 08/13/19 09:32 Dose: 1 mg Ceftriaxone Sodium 1 gm/ (Dextrose) 50 mls @ 100 mls/hr IVPB DAILY [facility]; Protocol Last Admin: 08/13/19 09:32 Dose: 100 mls/hr Ondansetron HCl (Zofran Injection) 4 mg IVPUSH Q6H PRN PRN Reason: NAUSEA AND/OR VOMITING Last Admin: 08/12/19 05:55 Dose: 4 mg Pantoprazole Sodium (Protonix -) 40 mg PO DAILY [facility] Last Admin: 08/13/19 09:32 Dose: 40 mg Prednisone (Deltasone -) 70 mg PO DAILY [facility] Last Admin: 08/13/19 09:32 Dose: 70 mg - Objective Vital Signs: Vital Signs Temperature 98.0 F 08/13/19 10:00 Pulse Rate 64 08/13/19 10:00 Respiratory Rate 18 08/13/19 10:00 Blood Pressure 151/50 L 08/13/19 10:00 O2 Sat by Pulse Oximetry (%) 98 08/12/19 21:00 Constitutional: Yes: No Distress, Calm Cardiovascular: Yes: S1, S2 Respiratory: Yes: Regular, CTA Bilaterally Gastrointestinal: Yes: Normal Bowel Sounds, Soft Musculoskeletal: Yes: WNL Extremities: Yes: WNL Neurological: Yes: Alert, Oriented Psychiatric: Yes: Alert, Oriented Labs: CBC, BMP 08/13/19 06:45 08/13/19 06:45 INR, PTT INR 1.25 (0.83-1.09) H 08/09/19 20:00 Assessment/Plan Problem List - Problems (1) Nausea & vomiting Code(s): R11.2 - NAUSEA WITH VOMITING, UNSPECIFIED (2) Diarrhea Code(s): R19.7 - DIARRHEA, UNSPECIFIED (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 - STRICTURE OF ARTERY (4) Hemolytic anemia Code(s): D58.9 - HEREDITARY HEMOLYTIC ANEMIA, UNSPECIFIED (5) History of bacterial meningitis Code(s): Z86.61 - PERSONAL HISTORY OF INFECTIONS OF THE CENTRAL NERVOUS SYSTEM (6) History of CVA in adulthood Code(s): Z86.73 - PRSNL HX OF TIA (TIA), AND CEREB INFRC W/O RESID DEFICITS (7) History of myocardial infarction in adulthood Code(s): I25.2 - OLD MYOCARDIAL INFARCTION (8) Abdominal pain Code(s): R10.9 - UNSPECIFIED ABDOMINAL PAIN Qualifiers: Abdominal location: generalized Qualified Code(s): R10.84 - Generalized abdominal pain 9 uti plan continue abx close watch' await for imaging studies result rest as per the team
--- NOTE | 2019-08-13 17:34 | PN.GI ---
GI Progress Note Subjective: Pt seen/examined at bedside, ambulating in room, feeling better, still mild abdominal discomfort and nausea, overall improved. MRCP performed today was unremarkable. - Objective Vital Signs: Vital Signs Temperature 98.7 F 08/13/19 14:41 Pulse Rate 65 08/13/19 14:41 Respiratory Rate 18 08/13/19 14:41 Blood Pressure 124/44 L 08/13/19 14:41 O2 Sat by Pulse Oximetry (%) 100 08/13/19 09:00 Constitutional: Well Nourished, No Distress, Calm Cardiovascular: Yes: WNL, Regular Rate and Rhythm Respiratory: Yes: WNL, Regular, CTA Bilaterally ...Palpate: Yes: Other (Abd soft, mild discomfort in periumbilical region on palpation, nondistended) Labs: CBC, BMP 08/13/19 06:45 08/13/19 06:45 INR, PTT INR 1.25 (0.83-1.09) H 08/09/19 20:00 Problem List - Problems (1) Nausea & vomiting Assessment/Plan: 64 yo female h/o hemolytic anemia, cholecystectomy presenting with abdominal pain and nausea/vomiting with CT revealing SMA root narrowing and cecal thickening. No interventions advised per vascular surgery, though not ischemic. Mild alk phos and GGT elevation noted. MRCP unremarkable, no biliary dilation. Clinically improving. -Diet as tolerated -PPI daily -Symptoms improved and likely multifactorial though if persists may consider EGD once further optimized from hematology standpoint Code(s): R11.2 - NAUSEA WITH VOMITING, UNSPECIFIED (2) Hemolytic anemia Assessment/Plan: On higher dose of prednisone per hematology. Hb stable. No overt bleeding, no prior colonoscopy. -No urgency for endoscopy though pt would be due for screening purposes and to evaluate cecal thickening seen on CT imaging. -Once pt further optimized from hematological standpoint can consider colonoscopy and possible EGD if abdominal pain and nausea persists. Code(s): D58.9 - HEREDITARY HEMOLYTIC ANEMIA, UNSPECIFIED
--- NOTE | 2019-08-14 08:29 | PN ---
Progress Note (short form) - Note Progress Note: HPI: No complaints today. Curious about Hgb today and long-term plans. No events overnight PE: GEN: NAD, Awake, alert. Lungs: CTA bilaterally down to the bases. No wheezing Heart: RRR. S1, S2 heard. No murmurs Abdomen: soft, NT/ND. normoactive Bowel sounds heard. Extremities: no peripheral edema noted. No bruising, swelling, erythema or warmth of extremities noted. neuro: patient A&O x3. Moving all four limbs spontaneously CBC, BMP 08/14/19 06:22 08/13/19 06:45 Active Medications Acetaminophen (Tylenol -) 650 mg PO Q4H PRN PRN Reason: PAIN LEVEL 1-5 Last Admin: 08/12/19 16:53 Dose: 650 mg Folic Acid (Folic Acid -) 1 mg PO DAILY [facility] Last Admin: 08/13/19 09:32 Dose: 1 mg Ceftriaxone Sodium 1 gm/ (Dextrose) 50 mls @ 100 mls/hr IVPB DAILY [facility]; Protocol Last Admin: 08/13/19 09:32 Dose: 100 mls/hr Ondansetron HCl (Zofran Injection) 4 mg IVPUSH Q6H PRN PRN Reason: NAUSEA AND/OR VOMITING Last Admin: 08/12/19 05:55 Dose: 4 mg Pantoprazole Sodium (Protonix -) 40 mg PO DAILY [facility] Last Admin: 08/13/19 09:32 Dose: 40 mg Prednisone (Deltasone -) 70 mg PO DAILY [facility] Last Admin: 08/13/19 09:32 Dose: 70 mg Microbiology 08/09/19 20:05 Blood - Peripheral Venous Blood Culture - Preliminary NO GROWTH OBTAINED AFTER 96 HOURS, INCUBATION TO CONTINUE FOR 1 DAYS. 08/09/19 20:00 Blood - Peripheral Venous Blood Culture - Preliminary NO GROWTH OBTAINED AFTER 96 HOURS, INCUBATION TO CONTINUE FOR 1 DAYS. 08/09/19 22:25 Urine - Urine Clean Catch Urine Culture - Final Escherichia Fergusonii Assessment and Plan: Acute hemolytic anemia Abdominal pain 2/2 to above vs. SMA narrowing Urinary Tract Infection Enlarged CBD Peptic ulcer disease H/o TIA --Pt's AM Hgb 7.2 (down from 7.4) --Transfusion threshold 7.0 --Discuss with heme about potential of Rituxin vs. inpatient use of high dose prednisone --All fluids must be warmed to body temperature to prevent agglutination --MRCP negative for any biliary tree abnormalities --CT scan without any significant findings; reiterated NAFLD --Rocephin day 5 today --Discussed with ID: total 1 more day (PO if d/c today vs. morning IV dose for completion) --Appreciate all security system sales consultant recommendations FEN: Fluids: PO; avoid any cold fluids Electrolyte abnormalities: None Nutrition: Regular diet PPX: DVT - SCDs only GI -Protonix daily Dispo: continue to monitor with steroids Case discussed with Dr. Jewel Hook, DO - IM PGY-3 <Jeffery Hook - Last Filed: 08/14/19 10:30> - Note Progress Note: Seen and examined; please see resident note for full discussion. Agree with above aside from as I supplemented. Independently verified all exam findings and historical information. 10 item review of systems was completed and is negative aside from history of present illness. VS, labs, imaging reviewed NAD, AAO, resting comfortably in bed. RRR s1/2 no mgr Normal muscle tone, moves all 5 extremities with normal apparent strength Neck is supple, trachea midline, no juana LN Lungs CTAB with sym expansion NT ND +BS no juana organomegaly CN2-12 wnl; no FND NC AT EOMI PERRLA Normal mood, appropriate behavior, euthymic affect No skin breakdown or rashes noted Assessment and plan Patient is pending MRCP for dilated CBD, she continues on ceftriaxone, E. Fergusonii over 100,000 CFU's per milliliter grown in urine. She states her abdominal pain is improved and denies any diarrhea, nausea, or vomiting. She tolerated food this morning AI Hemolytics anemia Colg Algu (titers ++ for cold agl); continue with prednisone, followup with heme onc. Likely the cause of her anemia as opposed to acute blood loss picture. If prednisone not effective rituxan vs. IVIG; no indicated for plasmapherisis at this juncture.) Acute UTI (Continue abx per ID) Dilated CBD, pending MRCP Abdominal pain, improved Discussing with GI regarding need for procedure; 's concerns appreciated. Full Code <Wayne Holloway - Last Filed: 08/15/19 08:39>
[2019-08-14 08:52] LABS: HEMATOCRIT 21.6 % (32.4-45.2); HEMOGLOBIN 7.2 GM/dL (10.7-15.3); MCH 30.7 pg (25.7-33.7); MCHC 33.4 g/dl (32.0-36.0); MEAN CELL VOLUME 91.7 fl (80-96); MEAN PLT VOLUME 9.1 fl (7.5-11.1); PLATELET COUNT 366 K/MM3 (134-434); RBC 2.36 M/mm3 (3.60-5.2); RDW 18.2 % (11.6-15.6); WHITE BLOOD COUNT 12.2 K/mm3 (4.0-10.0)
[2019-08-14] MEDS ORDERED: cefTRIAXone SODIUM 1 GM VIAL ONE (09:11)
[2019-08-14] MEDS ORDERED: DEXTROSE 5%-WATER - 50 ML IVPB ONE (09:11)
--- NOTE | 2019-08-14 10:30 | PN ---
Progress Note, Physician History of Present Illness: stable no new issues imaging studies noted - Current Medication List Current Medications: Active Medications Acetaminophen (Tylenol -) 650 mg PO Q4H PRN PRN Reason: PAIN LEVEL 1-5 Last Admin: 08/12/19 16:53 Dose: 650 mg Folic Acid (Folic Acid -) 1 mg PO DAILY [facility] Last Admin: 08/13/19 09:32 Dose: 1 mg Ceftriaxone Sodium 1 gm/ (Dextrose) 50 mls @ 100 mls/hr IVPB DAILY [facility]; Protocol Last Admin: 08/13/19 09:32 Dose: 100 mls/hr Ondansetron HCl (Zofran Injection) 4 mg IVPUSH Q6H PRN PRN Reason: NAUSEA AND/OR VOMITING Last Admin: 08/12/19 05:55 Dose: 4 mg Pantoprazole Sodium (Protonix -) 40 mg PO DAILY [facility] Last Admin: 08/13/19 09:32 Dose: 40 mg Prednisone (Deltasone -) 70 mg PO DAILY [facility] Last Admin: 08/13/19 09:32 Dose: 70 mg - Objective Vital Signs: Vital Signs Temperature 97.9 F 08/14/19 10:00 Pulse Rate 65 08/14/19 10:00 Respiratory Rate 18 08/14/19 10:00 Blood Pressure 131/72 08/14/19 10:00 O2 Sat by Pulse Oximetry (%) 100 08/13/19 21:00 Constitutional: Yes: No Distress, Calm Cardiovascular: Yes: S1, S2 Respiratory: Yes: Regular, CTA Bilaterally Gastrointestinal: Yes: Normal Bowel Sounds, Soft Musculoskeletal: Yes: WNL Extremities: Yes: WNL Neurological: Yes: Alert, Oriented Psychiatric: Yes: Alert, Oriented Labs: CBC, BMP 08/14/19 06:22 08/13/19 06:45 INR, PTT INR 1.25 (0.83-1.09) H 08/09/19 20:00 Assessment/Plan Problem List - Problems (1) Nausea & vomiting Code(s): R11.2 - NAUSEA WITH VOMITING, UNSPECIFIED (2) Diarrhea Code(s): R19.7 - DIARRHEA, UNSPECIFIED (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 - STRICTURE OF ARTERY (4) Hemolytic anemia Code(s): D58.9 - HEREDITARY HEMOLYTIC ANEMIA, UNSPECIFIED (5) History of bacterial meningitis Code(s): Z86.61 - PERSONAL HISTORY OF INFECTIONS OF THE CENTRAL NERVOUS SYSTEM (6) History of CVA in adulthood Code(s): Z86.73 - PRSNL HX OF TIA (TIA), AND CEREB INFRC W/O RESID DEFICITS (7) History of myocardial infarction in adulthood Code(s): I25.2 - OLD MYOCARDIAL INFARCTION (8) Abdominal pain Code(s): R10.9 - UNSPECIFIED ABDOMINAL PAIN Qualifiers: Abdominal location: generalized Qualified Code(s): R10.84 - Generalized abdominal pain 9 uti plan continue abx close watch' await for imaging studies result rest as per the team can stop abx after todays dose
[2019-08-14] MEDS: CEFTRIAXONE 1 GM in DEXTROSE 5%-WATER - 50 ML IVPB SCH (10:36)
[2019-08-14] MEDS: PANTOPRAZOLE 40 MG TABLET (FP) PO SCH (10:36)
[2019-08-14] MEDS: predniSONE 20 MG TABLET (UD) PO SCH (10:36)
[2019-08-14] MEDS: FOLIC ACID 1 MG TABLET (FP) PO SCH (10:36)
--- NOTE | 2019-08-14 11:54 | PN ---
Progress Note (short form) - Note Progress Note: Hematology and oncology follow up Subjective: Patient seen and examined at bedside. No events overnight. no new complaints Objective: Vital Signs Temperature 97.9 F 08/14/19 10:00 Pulse Rate 65 08/14/19 10:00 Respiratory Rate 18 08/14/19 10:00 Blood Pressure 131/72 08/14/19 10:00 O2 Sat by Pulse Oximetry (%) 100 08/14/19 09:00 Physical exam: Gen.: patient found lying in bed. Well appearing. Awake, alert. Lungs: clear to auscultation bilaterally down to the bases. Heart: regular rate and rhythm. S1, S2 heard. No murmurs gallops or rubs heard. Abdomen: soft, nontender, nondistended. Bowel sounds heard. Extremities: no peripheral edema noted. No bruising, swelling, erythema or warmth of extremities noted. neuro: patient A&O x3. Moving all four limbs spontaneously Active Medications Acetaminophen (Tylenol -) 650 mg PO Q4H PRN PRN Reason: PAIN LEVEL 1-5 Folic Acid (Folic Acid -) 1 mg PO DAILY [facility] Last Admin: 08/11/19 10:32 Dose: 1 mg Ceftriaxone Sodium 1 gm/ (Dextrose) 50 mls @ 100 mls/hr IVPB DAILY [facility]; Protocol Last Admin: 08/11/19 10:30 Dose: 100 mls/hr Metronidazole (Flagyl 500mg Premixed Ivpb -) 500 mg in 100 mls @ 100 mls/hr IVPB Q8H-IV [facility] Last Admin: 08/11/19 18:52 Dose: 100 mls/hr Sodium Chloride (Normal Saline -) 1,000 mls @ 150 mls/hr IV ASDIR TRAM Last Admin: 08/11/19 13:49 Dose: 150 mls/hr Pantoprazole Sodium 80 mg/ (Sodium Chloride) 100 mls @ 10 mls/hr IVPB Q10H [facility] Last Admin: 08/11/19 18:45 Dose: 10 mls/hr Morphine Sulfate (Morphine Sulfate) 4 mg IVPUSH Q4H PRN PRN Reason: PAIN LEVEL 6-10 Last Admin: 08/11/19 10:52 Dose: 4 mg Prednisone (Deltasone -) 70 mg PO DAILY [facility] Home Medications Medication Instructions Recorded Folic Acid 1 mg PO DAILY 08/09/19 Pantoprazole Sodium 40 mg PO DAILY 08/09/19 Prednisolone [Millipred] 10 mg PO DAILY 08/09/19 Allergies Allergy/AdvReac Type Severity Reaction Status Date / Time Penicillins Allergy Verified 08/09/19 19:01 CBC, BMP 08/14/19 06:22 08/13/19 06:45 Laboratory Tests 08/10/19 08/11/19 08/11/19 07:40 07:05 07:05 Retic Count 4.41 H Total Bilirubin 0.7 Direct Bilirubin 0.3 H GGT 250 H AST 18 ALT 31 Alkaline Phosphatase 190 H LD Total C-Reactive Protein 12.3 H Cold Agglutinins 1:256 H 08/11/19 13:44 Retic Count Total Bilirubin Direct Bilirubin GGT AST ALT Alkaline Phosphatase LD Total 261 H C-Reactive Protein Cold Agglutinins Assessment and plan: The patient is a 64 yo f w/ PMH known cold agglutinin syndrome (Dx 2014) who comes into the ED c/o nausea, abdominal pain and NBNB vomiting. #Acute hemolytic crisis likely 2/2 UTI vs weather change -AM Hb 7.4; stable -s/p 1u PRBC -steroids lowered from 70mg daily to 60mg daily (day 3) -Patient may require rituxin infusion if refractory to steroids -trend daily bili, retic, LDH, CBC, LFTs -will send flow cytometry -will rpt cold agglutination test today #history of cold agglutinin disease -outpatient nurse discharge: Dr. Villarreal ([phone]) -if patient refractory to steroids, will begin rituxin infusion and d/c to follow up as outpatient once stable
[2019-08-14] MEDS ORDERED: predniSONE 20 MG TABLET (UD) PO SCH (12:49)
--- NOTE | 2019-08-14 13:44 | PN.GI ---
GI Progress Note Subjective: No acute events No abdominal pain tolerating PO On trial of high dose presdnisone for hemolytic anemia MRCP: ectatic CHD otherwise no ductal abnormalities. 2 hypoointense lesions in the spleen, F/U witth contrast MRI per radiologist. - Objective Vital Signs: Vital Signs Temperature 97.9 F 08/14/19 10:00 Pulse Rate 65 08/14/19 10:00 Respiratory Rate 18 08/14/19 10:00 Blood Pressure 131/72 08/14/19 10:00 O2 Sat by Pulse Oximetry (%) 100 08/14/19 09:00 Constitutional: Calm Eyes: No: Sclera Icterus Cardiovascular: Yes: Regular Rate and Rhythm Respiratory: Yes: CTA Bilaterally Gastrointestinal Inspection: No: Distention ...Auscultate: Yes: Normoactive Bowel Sounds ...Palpate: Yes: Soft. No: Hepatomegaly, Splenomegaly, Tenderness ...Percussion: No: Tympanitic ...Rectal Exam: Yes: Other (Refused by patient today) Edema: No (No LE edema) Neurological: Yes: Alert Labs: CBC, BMP 08/14/19 06:22 08/13/19 06:45 INR, PTT INR 1.25 (0.83-1.09) H 08/09/19 20:00 Hepatic Panel Total Bilirubin 0.5 mg/dL (0.2-1) 08/13/19 06:45 Direct Bilirubin 0.3 mg/dL (0.0-0.2) H 08/11/19 07:05 AST 19 U/L (15-37) 08/13/19 06:45 ALT 29 U/L (13-61) 08/13/19 06:45 Alkaline Phosphatase 175 U/L (45-117) H 08/13/19 06:45 Albumin 3.0 g/dl (3.4-5.0) L 08/13/19 06:45 Problem List - Problems (1) Hemolytic anemia Assessment/Plan: Being evaluated by hematology. When cleared from heme standpoint, EGD/ Colonoscopy can be undertaken to exclude contributory GI sources of anemia and evaluation of cecal wall thickening vs. underdistention noted on CT scan. No overt GI bleeding and refused rectal exam today. Awaiting stool for occult blood. Problems reviewed: Yes Code(s): D58.9 - HEREDITARY HEMOLYTIC ANEMIA, UNSPECIFIED (2) Diarrhea Assessment/Plan: No diarrhea currently Problems reviewed: Yes Code(s): R19.7 - DIARRHEA, UNSPECIFIED (3) Nausea & vomiting Assessment/Plan: No N/V and tolerating PO Problems reviewed: Yes Code(s): R11.2 - NAUSEA WITH VOMITING, UNSPECIFIED (4) Dilated bile duct Assessment/Plan: Non-dilated bile duct on MRCP Check Anntimitochondrial antibody as part of further evaluation of elevated alkaline phosphatase Hepatitis core antibody IgG (no need for acute hepatitis serologies) should be checked, particularly if rituxan is being considered as part of treatment of hemolytic anemia. If positive, would need Hep B prophylactic treatmment. Code(s): K83.8 - OTHER SPECIFIED DISEASES OF BILIARY TRACT
--- NOTE | 2019-08-14 21:03 | PN ---
Progress Note (short form) - Note Progress Note: Patient seen and examined c/o night sweats AFVSS Cor: RSR, No murmurs, No gallops Lungs: Clear to P&A Abd: Soft, Normal bowel sounds, No organomegaly Ext:No significant edema Labs/Meds reviewed A/P 64 y/o patient with h/o cold agglutinin hemolytic anemia, last treated with rituxan in 2016. Is on prednisone maintenance of 5mg daily Comes in with worsening anemia from baseline of -11 to 6.3 LDH --nl. cold agglutinin --1:256. Transfused 1 unit PRBCs increased prednisone since 08/11 check Hep B profile in anticipation for rituxan check flow/cytogenetics/FISH/SIFE/UIFE/THOMAS/RF/ESR CT a/p --no retroperitoneal adenopathy. Narrowing of SMA?/ splenic nodules CT chest--no malignancy MRI ---splenic nodules. nl pancreas ? outpatient PET-CT Will recheck CBC i n am Transfuse for Hgb <8 Continue folicacid continue prednisone Patient wants gi w/u and bmbx done at [place] with her primary oncologist will discuss with team to closely f/u with
[2019-08-15 07:57] LABS: BLOOD UREA NITROGEN 21.3 mg/dL (7-18); CREATININE 1.2 mg/dL (0.55-1.3); POTASSIUM 4.4 mmol/L (3.5-5.1)
[2019-08-15 07:58] LABS: CALCIUM 8.7 mg/dL (8.5-10.1)
[2019-08-15] MEDS ORDERED: DEXTROSE 5%-WATER - 50 ML IVPB ONE (08:58)
[2019-08-15] MEDS ORDERED: cefTRIAXone SODIUM 1 GM VIAL ONE (08:58)
[2019-08-15] MEDS: FOLIC ACID 1 MG TABLET (FP) PO SCH (09:16)
[2019-08-15] MEDS: PANTOPRAZOLE 40 MG TABLET (FP) PO SCH (09:17)
[2019-08-15] MEDS: CEFTRIAXONE 1 GM in DEXTROSE 5%-WATER - 50 ML IVPB SCH (09:41)
[2019-08-15 09:52] LABS: HEMATOCRIT 24.2 % (32.4-45.2); HEMOGLOBIN 7.9 GM/dL (10.7-15.3); MCH 30.2 pg (25.7-33.7); MCHC 32.8 g/dl (32.0-36.0); MEAN CELL VOLUME 91.9 fl (80-96); MEAN PLT VOLUME 9.4 fl (7.5-11.1); PLATELET COUNT 376 K/MM3 (134-434); RBC 2.63 M/mm3 (3.60-5.2); RDW 18.9 % (11.6-15.6); WHITE BLOOD COUNT 13.9 K/mm3 (4.0-10.0)
[2019-08-15 10:13] VITALS: BP 133/61; PULSE 69; TEMP 97.9
--- NOTE | 2019-08-15 12:18 | PN ---
Progress Note, Physician History of Present Illness: stable no new issues - Current Medication List Current Medications: Active Medications Acetaminophen (Tylenol -) 650 mg PO Q4H PRN PRN Reason: PAIN LEVEL 1-5 Last Admin: 08/12/19 16:53 Dose: 650 mg Folic Acid (Folic Acid -) 1 mg PO DAILY [facility] Last Admin: 08/15/19 09:16 Dose: 1 mg Ceftriaxone Sodium 1 gm/ (Dextrose) 50 mls @ 100 mls/hr IVPB DAILY [facility]; Protocol Last Admin: 08/15/19 09:41 Dose: 100 mls/hr Ondansetron HCl (Zofran Injection) 4 mg IVPUSH Q6H PRN PRN Reason: NAUSEA AND/OR VOMITING Last Admin: 08/12/19 05:55 Dose: 4 mg Pantoprazole Sodium (Protonix -) 40 mg PO DAILY [facility] Last Admin: 08/15/19 09:17 Dose: 40 mg Prednisone (Deltasone -) 60 mg PO DAILY [facility] Last Admin: 08/15/19 09:16 Dose: 60 mg - Objective Vital Signs: Vital Signs Temperature 97.9 F 08/15/19 10:00 Pulse Rate 69 08/15/19 10:00 Respiratory Rate 18 08/15/19 10:00 Blood Pressure 133/61 08/15/19 10:00 O2 Sat by Pulse Oximetry (%) 100 08/15/19 09:00 Constitutional: Yes: No Distress, Calm Cardiovascular: Yes: Regular Rate and Rhythm Respiratory: Yes: Regular, CTA Bilaterally Gastrointestinal: Yes: Normal Bowel Sounds, Soft Musculoskeletal: Yes: WNL Extremities: Yes: WNL Neurological: Yes: Alert, Oriented Psychiatric: Yes: Alert, Oriented Labs: CBC, BMP 08/15/19 06:53 08/15/19 06:53 INR, PTT INR 1.25 (0.83-1.09) H 08/09/19 20:00 Assessment/Plan Problem List - Problems (1) Nausea & vomiting Code(s): R11.2 - NAUSEA WITH VOMITING, UNSPECIFIED (2) Diarrhea Code(s): R19.7 - DIARRHEA, UNSPECIFIED (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 - STRICTURE OF ARTERY (4) Hemolytic anemia Code(s): D58.9 - HEREDITARY HEMOLYTIC ANEMIA, UNSPECIFIED (5) History of bacterial meningitis Code(s): Z86.61 - PERSONAL HISTORY OF INFECTIONS OF THE CENTRAL NERVOUS SYSTEM (6) History of CVA in adulthood Code(s): Z86.73 - PRSNL HX OF TIA (TIA), AND CEREB INFRC W/O RESID DEFICITS (7) History of myocardial infarction in adulthood Code(s): I25.2 - OLD MYOCARDIAL INFARCTION (8) Abdominal pain Code(s): R10.9 - UNSPECIFIED ABDOMINAL PAIN Qualifiers: Abdominal location: generalized Qualified Code(s): R10.84 - Generalized abdominal pain 9 uti plan can stop abx rest as per the team
--- NOTE | 2019-08-15 14:33 | PN ---
Progress Note (short form) - Note Progress Note: Hematology and oncology follow up Subjective: Patient seen and examined at bedside. No events overnight. no new complaints Objective: Vital Signs Temperature 97.9 F 08/15/19 10:00 Pulse Rate 69 08/15/19 10:00 Respiratory Rate 18 08/15/19 10:00 Blood Pressure 133/61 08/15/19 10:00 O2 Sat by Pulse Oximetry (%) 100 08/15/19 09:00 Physical exam: Gen.: patient found lying in bed. Well appearing. Awake, alert. Lungs: clear to auscultation bilaterally down to the bases. Heart: regular rate and rhythm. S1, S2 heard. No murmurs gallops or rubs heard. Abdomen: soft, nontender, nondistended. Bowel sounds heard. Extremities: no peripheral edema noted. No bruising, swelling, erythema or warmth of extremities noted. neuro: patient A&O x3. Moving all four limbs spontaneously Active Medications Acetaminophen (Tylenol -) 650 mg PO Q4H PRN PRN Reason: PAIN LEVEL 1-5 Folic Acid (Folic Acid -) 1 mg PO DAILY [facility] Last Admin: 08/11/19 10:32 Dose: 1 mg Ceftriaxone Sodium 1 gm/ (Dextrose) 50 mls @ 100 mls/hr IVPB DAILY [facility]; Protocol Last Admin: 08/11/19 10:30 Dose: 100 mls/hr Metronidazole (Flagyl 500mg Premixed Ivpb -) 500 mg in 100 mls @ 100 mls/hr IVPB Q8H-IV [facility] Last Admin: 08/11/19 18:52 Dose: 100 mls/hr Sodium Chloride (Normal Saline -) 1,000 mls @ 150 mls/hr IV ASDIR TRAM Last Admin: 08/11/19 13:49 Dose: 150 mls/hr Pantoprazole Sodium 80 mg/ (Sodium Chloride) 100 mls @ 10 mls/hr IVPB Q10H TRAM Last Admin: 08/11/19 18:45 Dose: 10 mls/hr Morphine Sulfate (Morphine Sulfate) 4 mg IVPUSH Q4H PRN PRN Reason: PAIN LEVEL 6-10 Last Admin: 08/11/19 10:52 Dose: 4 mg Prednisone (Deltasone -) 70 mg PO DAILY [facility] Home Medications Medication Instructions Recorded Folic Acid 1 mg PO DAILY 08/09/19 Pantoprazole Sodium 40 mg PO DAILY 08/09/19 Prednisolone [Millipred] 10 mg PO DAILY 08/09/19 Allergies Allergy/AdvReac Type Severity Reaction Status Date / Time Penicillins Allergy Verified 08/09/19 19:01 CBC, BMP 08/15/19 06:53 08/15/19 06:53 Assessment and plan: The patient is a 64 yo f w/ PMH known cold agglutinin syndrome (Dx 2014) who comes into the ED c/o nausea, abdominal pain and NBNB vomiting. #Acute hemolytic crisis likely 2/2 UTI vs weather change -AM Hb 7.9; improving -c/w prednisone 60mg daily (day 4) -trend daily bili, retic, LDH, CBC, LFTs -f/u flow cytometry -cold agglutination test pending -Patient stable for discharge from hematologic standpoint. Her outpatient creping machine operator helper aware of her and will see her early next week. -Patient should have CBC, total and direct bilirubin, LDH checked on sunday. Instructed her to present to the [facility] resident clinic for this blood work -patient should be discharge on 50mg prednisone daily as well as protonix until she follows with her outpatient creping machine operator helper. #history of cold agglutinin disease -outpatient creping machine operator helper: Dr. Villarreal ([phone]) -if patient refractory to steroids, will begin rituxin infusion and d/c to follow up as outpatient once stable
--- NOTE | 2019-08-20 10:18 | PATH ---
Surgical Pathology Report Patient Name: NAOMI SWAIN Med. Rec. #: [id number] /Age/Gender: 1955 (Age: 64) / F Account: [id number] Location: [facility] Taken: 08/14/2019 Received: 08/14/2019 Reported: 08/20/2019 Physicians: Melody Reyes M.D. Specimen(s) Received PERIPHERAL BLOOD THREE GREEN TOP TUBES Clinical History Hx of cold agglutinin hemolytic anemia Final Diagnosis FLOW CYTOMETRY performed and interpreted at [facility] laboratory, [place], [place] ([id number]) shows the following: INTERPRETATION: There is no evidence of B or T-cell proliferative disorders or increased blasts. Granulocytes with slight left shift. See [facility] report ([id number]) for additional details. Electronically Signed Neymar Case M.D. Gross Description Received peripheral blood in three green top tubes. Sent to [facility] for analysis. EDUARDO/08/15/2019 tim/08/15/2019
== END 2019-08-15 14:54 | disposition home or self-care (01) | DRG 812 ==
LOC: JER 18:51 → JERBED 08-10 00:01 → J7W 08-10 01:55
PROVIDERS: ADMIT Internal Medicine; ATTEND Internal Medicine
PROC: 30233N1 Transfusion of Nonautologous Red Blood Cells into Peripheral Vein, Percutaneous Approach (ICD-10-PCS; principal; 2019-08-12)
DX: D58.9 Hereditary hemolytic anemia, unspecified (principal); N39.0 Urinary tract infection, site not specified; N17.9 Acute kidney failure, unspecified; I69.351 Hemiplegia and hemiparesis following cerebral infarction affecting right dominant side; D72.829 Elevated white blood cell count, unspecified; A08.4 Viral intestinal infection, unspecified; R11.2 Nausea with vomiting, unspecified; K83.8 Other specified diseases of biliary tract; I77.1 Stricture of artery; K27.9 Peptic ulcer, site unspecified, unspecified as acute or chronic, without hemorrhage or perforation; K21.9 Gastro-esophageal reflux disease without esophagitis
CPT/HCPCS: 36415; 36430; 71045-TC-FY; 71260-TC; 74177-TC; 74181-TC; 76705-TC; 80048; 80053; 80074; 81003; 82150; 82248; 82607; 82728; 82746; 82803; 82977; 83010; 83540; 83550; 83605; 83615; 83690; 83735; 84100; 84155; 84165; 84443; 84484; 85025; 85027; 85032; 85044; 85610; 85651; 85730; 86038; 86140; 86157; 86431; 86704; 86705; 86803; 86850; 86870; 86880; 86900; 86901; 86902; 86922; 87040; 87086; 87186; 88300-TC; 93005; 93010; 99284-25; J0131; J7030; P9058